=== PATIENT | female | born 1935 | race Caucasian/White ===

== ENCOUNTER 2023-09-29 10:24 | Inpatient (IN) ==
--- NOTE | 2023-09-29 10:43 | Emergency Department Note ---
Impression & Plan Weakness, Hypothyroid, Acute UTI, Debilitated ED Provider Note NAME: EMIGDIO SUMNER AGE: 88 SEX: F : 1935 ARRIVES VIA: Ambulance INFORMANT: [Patient][ems] ED PROVIDER(S): [Martin Paulino MD] CHIEF COMPLAINT: Fluttering in the chest, weakness HISTORY OF PRESENT ILLNESS: The patient is an 88-year-old female presents to the ER with complaints of weakness and feeling that she cannot stand. She has noticed a fluttering in her chest. No shortness of breath, no fever, no urinary complaints. She believes that she is staying well-hydrated. The patient was here 2 days ago with similar complaints, workup was done and was unrevealing. As per EMS, the patient appeared quite anxious when they first arrived. She seemed to settle out during the transfer to the hospital. Of note, there is a report from EMS that she may not be taking her thyroid medication as prescribed. PMHx/PSHx/Social Hx: See Below PHYSICAL EXAM: GENERAL: Patient is in no acute distress. HEENT: No acute trauma, normocephalic atraumatic, mucous membranes moist, no nasal congestion. NECK: No stridor, no adenopathy, no meningismus, trachea is midline. LUNGS: Clear to auscultation bilaterally, no wheeze, no rhonchi, breath sounds equal. HEART: Without murmurs gallops or rubs, regular rate and rhythm. ABDOMEN: Soft, nontender, no peritonitis. EXTREMITIES: No cyanosis, full range of motion of all the joints without pain or difficulty. NEUROLOGIC: Oriented x 3, no acute motor or sensory deficits, no focal weakness. No speech slur or extremity drift. SKIN: No jaundice, no diaphoresis. DIFFERENTIAL DIAGNOSIS: Debilitation, UTI, dysrhythmia, ID, anemia, viral illness, dehydration, anxiety, among others. EMERGENCY DEPARTMENT PROCEDURES: MEDICAL DECISION MAKING: There is no leukocytosis or concerning anemia. There is a normal platelet count. No coagulopathy. No renal failure or significant electrolyte abnormality. No concerning liver enzyme elevation. No evidence for pancreatitis. ECG shows a sinus rhythm. There is no acute ischemic change. Cardiac enzyme testing x 1 was not consistent with acute cardiac injury. TSH was high consistent with hypothyroidism. The patient admits that she has run out of her thyroid medication. She states it has been sometime since she has taken her thyroid medication. Urinalysis is suggestive of infection, urine culture is pending. COVID, influenza and RSV test were negative. Chest film does not show pneumonia or CHF. On exam, there were no focal neurologic deficits to suggest CVA. The patient received IV saline for hydration. She was given a dose of oral Keflex for her UTI. She was given her typical dose of oral levothyroxine for the hypothyroidism. The patient does meet criteria for rehab. She we will require a hospital stay overnight as there are no rehab beds available today. I suspect the patient is somewhat debilitated. This is causing a lot of her weakness. In addition, the UTI and hypothyroidism are certainly contributing. The patient is aware of her findings, I did speak with case management, the on- call hospitalist was consulted. Prior/Outside records/notes reviewed: Today's EMS notes describing her presentation and transfer to this hospital. ECG per my interpretation: Indication was palpitations and weakness. The ECG shows a poor baseline but I suspect the rhythm is normal sinus. The rate is 73. There is diffuse nonspecific ST change. There is no ST elevation, no PVCs. The QTc is 409. Continuous Cardiac Monitoring per my interpretation: An order was placed for continuous cardiac monitoring. The monitor shows a rate of 75 with normal sinus rhythm. Imaging/x-ray results per my interpretation: Chest x-ray shows some chronic change, no pneumonia or CHF. Chronic Medical/Social conditions affecting care: Advanced age. Care/Management discussed with: Case management. Level of care consideration(s): After review of the information above and other included data: --I believe the patient requires escalation of care to admission DISPOSITION: Admission Past Med/Surg History Problem List (Updated 09/29/23 @ 13:42 by Martin Paulino MD) Debilitated (Acute) Acute UTI (Acute) Hypothyroid (Acute) Weakness (Acute) Nausea (Acute) Medical History Hypothyroid Weakness Social History Smoking Status: Never smoker Preferred Language: Maori Feels Safe at Home: Yes Allergies Allergies Allergy/AdvReac Type Severity Reaction Status Date / Time No Known Allergies Allergy Unverified 09/29/23 13:17 Home Meds Home Medications Medication Instructions Recorded Confirmed levothyroxine 88 mcg tablet 88 mcg PO DAILY 09/29/23 09/29/23 multivitamin 1 tab PO DAILY 09/29/23 09/29/23 Results & Data (ED) Vital Signs Vital Signs - 24 hr 09/29/23 10:16 09/29/23 10:16 09/29/23 10:31 Temperature 36.7 C Temperature Source Oral Pulse Rate 72 Pulse Rate from SpO2 Sensor Respiratory Rate 30 H Respiratory Effort / Characteristics Non-Labored Respiratory Depth Normal Respiratory Pattern Regular Blood Pressure 170/82 H Blood Pressure Mean 111 Pulse Oximetry 99 99 Oxygen Delivery Method Room Air Room Air Room Air Sepsis Recent Fever Within 48 Hours No Sepsis New/Unexplained Change in Mental Status N/A Sepsis Action Taken by Nursing No Action Required 09/29/23 10:31 09/29/23 10:36 09/29/23 10:42 Temperature Temperature Source Pulse Rate 66 65 Pulse Rate from SpO2 Sensor 66 65 Respiratory Rate 28 H 24 Respiratory Effort / Characteristics Respiratory Depth Respiratory Pattern Blood Pressure 170/82 H Blood Pressure Mean 90 Pulse Oximetry 99 99 Oxygen Delivery Method Sepsis Recent Fever Within 48 Hours Sepsis New/Unexplained Change in Mental Status Sepsis Action Taken by Nursing 09/29/23 11:00 09/29/23 11:01 09/29/23 11:01 Temperature Temperature Source Pulse Rate 68 Pulse Rate from SpO2 Sensor 74 Respiratory Rate 28 H Respiratory Effort / Characteristics Respiratory Depth Respiratory Pattern Blood Pressure 178/83 H 178/83 H Blood Pressure Mean 113 113 Pulse Oximetry 95 Oxygen Delivery Method Sepsis Recent Fever Within 48 Hours Sepsis New/Unexplained Change in Mental Status Sepsis Action Taken by Nursing 09/29/23 11:01 09/29/23 11:01 09/29/23 11:04 Temperature Temperature Source Pulse Rate 65 Pulse Rate from SpO2 Sensor Respiratory Rate Respiratory Effort / Characteristics Respiratory Depth Respiratory Pattern Blood Pressure 178/83 H 178/83 H Blood Pressure Mean 113 113 Pulse Oximetry Oxygen Delivery Method Sepsis Recent Fever Within 48 Hours Sepsis New/Unexplained Change in Mental Status Sepsis Action Taken by Nursing 09/29/23 11:12 09/29/23 11:27 09/29/23 11:36 Temperature Temperature Source Pulse Rate 76 72 67 Pulse Rate from SpO2 Sensor 75 72 67 Respiratory Rate 24 18 18 Respiratory Effort / Characteristics Respiratory Depth Respiratory Pattern Blood Pressure Blood Pressure Mean Pulse Oximetry 99 99 95 Oxygen Delivery Method Sepsis Recent Fever Within 48 Hours Sepsis New/Unexplained Change in Mental Status Sepsis Action Taken by Nursing 09/29/23 11:48 09/29/23 12:00 09/29/23 12:09 Temperature Temperature Source Pulse Rate 63 65 Pulse Rate from SpO2 Sensor 63 65 Respiratory Rate 22 26 H Respiratory Effort / Characteristics Respiratory Depth Respiratory Pattern Blood Pressure 150/78 H Blood Pressure Mean 104 Pulse Oximetry 96 95 Oxygen Delivery Method Sepsis Recent Fever Within 48 Hours Sepsis New/Unexplained Change in Mental Status Sepsis Action Taken by Nursing 09/29/23 12:12 09/29/23 12:21 09/29/23 12:24 Temperature Temperature Source Pulse Rate 66 61 71 Pulse Rate from SpO2 Sensor 65 61 Respiratory Rate 17 17 20 Respiratory Effort / Characteristics Respiratory Depth Respiratory Pattern Blood Pressure Blood Pressure Mean Pulse Oximetry 98 94 Oxygen Delivery Method Sepsis Recent Fever Within 48 Hours Sepsis New/Unexplained Change in Mental Status Sepsis Action Taken by Nursing 09/29/23 12:30 09/29/23 12:30 09/29/23 13:00 Temperature Temperature Source Pulse Rate Pulse Rate from SpO2 Sensor Respiratory Rate Respiratory Effort / Characteristics Respiratory Depth Respiratory Pattern Blood Pressure 140/72 140/72 132/67 Blood Pressure Mean 97 97 78 Pulse Oximetry Oxygen Delivery Method Sepsis Recent Fever Within 48 Hours Sepsis New/Unexplained Change in Mental Status Sepsis Action Taken by Nursing 09/29/23 13:03 Temperature Temperature Source Pulse Rate 63 Pulse Rate from SpO2 Sensor 64 Respiratory Rate 17 Respiratory Effort / Characteristics Respiratory Depth Respiratory Pattern Blood Pressure Blood Pressure Mean Pulse Oximetry 96 Oxygen Delivery Method Sepsis Recent Fever Within 48 Hours Sepsis New/Unexplained Change in Mental Status Sepsis Action Taken by Prison Medications Current Medication List: was personally reviewed by me Laboratory Data Attestation: I reviewed the patient's lab results. 09/29/23 10:32 09/29/23 10:32 Lab Results 09/29/23 09/29/23 09/29/23 Range/Units 10:32 10:47 Unknown WBC 6.44 (4.8-10.8) K/ul RBC 5.00 (4.20-5.40) M/uL Hgb 15.9 (12.0-16.0) g/dl Hct 46.9 (37.0-47.0) % MCV 93.8 (80.0-100.0) fL MCH 31.8 (25.0-34.0) pg MCHC 33.9 (32.0-36.0) g/dL RDW Std Deviation 47.9 H (36.4-46.3) fL RDW Coeff of Abiodun 13.8 (11.5-14.5) % Plt Count 202 (130-400) K/uL MPV 9.7 (9.4-12.4) fL Immature Gran % (Auto) 0.3 % Neut % (Auto) 74.5 % Lymph % (Auto) 17.4 % [place] % (Auto) 6.4 % Eos % (Auto) 1.1 % Baso % (Auto) 0.3 % Neut # (Auto) 4.80 (1.40-6.50) K/uL Lymph # (Auto) 1.12 L (1.20-3.40) K/uL [place]ell # (Auto) 0.41 (0.11-0.59) K/uL Eos # (Auto) 0.07 (0.00-0.50) K/uL Baso # (Auto) 0.02 (0.00-0.20) K/uL Immature Gran # (Auto) 0.02 (0.01-0.20) K/uL PT 10.9 (9.0-12.0) Seconds INR 1.0 (0.9-1.1) APTT 29 (21-31) Seconds PTT Ratio 1.1 Sodium 134 L (136-145) mmol/L Potassium 4.4 (3.5-5.1) mmol/L Chloride 100 (98-107) mmol/L Carbon Dioxide 24 (21-32) mmol/L Anion Gap 10 (3-11) BUN 9 (6-23) mg/dl Creatinine 1.07 (0.6-1.2) mg/dl Est Cr Clr Drug Dosing 37.6 ml/min Est GFR ( Amer) 53.7 ml/min Est GFR (Non-Af Amer) 46.3 ml/min BUN/Creatinine Ratio 8.4 L (10-20) Glucose 91 (70-99(Fasting)) mg/dl Calcium 10.1 (8.6-10.3) mg/dl Magnesium 2.2 (1.7-2.4) mg/dl Total Bilirubin 1.2 H (0.2-1.0) mg/dl AST 19 (13-39) U/L ALT 8 (7-52) U/L Alkaline Phosphatase 92 (34-104) U/L Troponin I High Sens 3.4 (0-14) pg/ml Total Protein 7.1 (6.0-8.3) gm/dl Albumin 4.3 (3.4-5.0) gm/dl Globulin 2.8 (2.5-4.0) gm/dl Albumin/Globulin Ratio 1.5 (0.9-2) Lipase 17 (11-82) U/L TSH 174.733 H (0.300-4.500) uIu/ml Free T4 < 0.25 L (0.61-1.60) ng/dl Urine Color Yellow Urine Appearance Clear (Clear) Urine pH 6.0 (4.5-7.5) Ur Specific [place] 1.006 (1.000-1.030) Urine Protein Negative (Negative) Urine Glucose (UA) Negative (Negative) Urine Ketones 1+ H (Negative) Urine Blood Negative (Negative) Urine Nitrite Negative (Negative) Urine Bilirubin Negative (Negative) Urine Urobilinogen Negative (Negative) Ur Leukocyte Esterase 2+ H (Negative) Urine WBC (Auto) 11-20 H (0-5) /hpf Urine RBC (Auto) 0-2 (0-2) /hpf U Hyaline Cast (Auto) 0-2 (0-2) /lpf U Epithel Cells (Auto) 0-2 (0-2) /hpf Urine Bacteria (Auto) None Seen (None Seen) SARS-CoV-2 (PCR) NEGATIVE (Negative) Influenza Type A (PCR) Negative (Neg) Influenza Type B (PCR) Negative (Neg) RSV (RT-PCR) Negative (Neg) Administered Medications Discontinued Medications Cephalexin HCl (Cephalexin 250 Mg Cap) 500 mg PO NOW ONE Stop: 09/29/23 12:03 Last Admin: 09/29/23 12:46 Dose: 500 mg Documented By: AM Sodium Chloride (Nss) 500 mls @ 999 mls/hr IV .Q31M ONE Stop: 09/29/23 11:07 Last Infusion: 09/29/23 12:21 Dose: Infused Documented By: Admin: 09/29/23 10:45 Dose: 999 mls/hr Documented By: AM Levothyroxine Sodium (Levothyroxine Sodium 88 Mcg Tablet) 88 mcg PO NOW STA Stop: 09/29/23 12:14 Last Admin: 09/29/23 13:11 Dose: 88 mcg Documented By: AM Imaging Data Radiologist's Impression: Chest X-Ray 09/29/23 10:31 XR chest 1V portable CLINICAL HISTORY: Chest pain, nonspecific TECHNIQUE: Single frontal radiograph of the chest was obtained. Comparison: Comparison is made to chest radiograph 09/26/2013 FINDINGS: No lines and tubes are seen. The cardiomediastinal silhouette is normal. The lungs are clear. No evidence of pleural effusion or pneumothorax. IMPRESSION: No acute chest disease. ACT 112: Negative or not required by law. Electronically signed by: Kirill Joseph M.D. 09/29/2023 10:47 AM Discharge Plan Visit Data Chief Complaint: Cardiac Assessment ED Provider: Martin Paulino Discharge Problem: Weakness, Hypothyroid, Acute UTI, Debilitated Patient Disposition: Admitted As Inpatient Condition: Fair Forms Stand Alone Forms: [facility] [employer] Prescriptions Prescriptions: No Action levothyroxine 88 mcg tablet 88 mcg PO DAILY multivitamin [Multi-Vitamin] Tablet 1 tab PO DAILY Referrals Referrals: PCP,NO [Primary Care Provider] - Discharge Problem: Hypothyroid Qualifiers: Hypothyroidism type: unspecified Qualified Code(s): E03.9 - Hypothyroidism, unspecified
[2023-09-29] MEDS: SODIUM CHLORIDE 0.9% 500 ML IV ONE (10:45)
--- NOTE | 2023-09-29 10:49 | XRay Report ---
XR chest 1V portable CLINICAL HISTORY: Chest pain, nonspecific TECHNIQUE: Single frontal radiograph of the chest was obtained. Comparison: Comparison is made to chest radiograph 09/26/2013 FINDINGS: No lines and tubes are seen. The cardiomediastinal silhouette is normal. The lungs are clear. No evid ence of pleural effusion or pneumothorax. IMPRESSION: No acute chest disease. ACT 112: Negative or not required by law. Electronically signed by: Kirill Joseph M.D. 09/29/2023 10:47 AM
[2023-09-29 11:09] LABS: Partial Thromboplastin Ratio 1.1; Partial Thromboplastin Time 29 Seconds (21-31); Prothrombin Time 10.9 Seconds (9.0-12.0)
[2023-09-29 11:19] LABS: Basophils # (auto) 0.02 K/uL (0.00-0.20); Basophils % (auto) 0.3 %; Eosinophils # (auto) 0.07 K/uL (0.00-0.50); Eosinophils % (auto) 1.1 %; Hematocrit (blood only) 46.9 % (37.0-47.0); Hemoglobin 15.9 g/dl (12.0-16.0); Immature Granulocytes # (auto) 0.02 K/uL (0.01-0.20); Immature Granulocytes % (auto) 0.3 %; Lymphocytes # (auto) 1.12 K/uL (1.20-3.40); Lymphocytes % (auto) 17.4 %; Mean Corpuscular Hemoglobin 31.8 pg (25.0-34.0); Mean Corpuscular Hgb Conc 33.9 g/dL (32.0-36.0); Mean Corpuscular Volume 93.8 fL (80.0-100.0); Mean Platelet Volume 9.7 fL (9.4-12.4); Monocytes # (auto) 0.41 K/uL (0.11-0.59); Monocytes % (auto) 6.4 %; Neutrophils % (auto) 74.5 %; Platelet Count 202 K/uL (130-400); RDW Coefficient of Variation 13.8 % (11.5-14.5); RDW Standard Deviation 47.9 fL (36.4-46.3); White Blood Count 6.44 K/ul (4.8-10.8)
[2023-09-29 11:24] LABS: Alanine Aminotransferase 8 U/L (7-52); Albumin Globulin Ratio 1.5 (0.9-2); Albumin Level 4.3 gm/dl (3.4-5.0); Alkaline Phosphatase 92 U/L (34-104); Anion Gap 10 (3-11); Aspartate Aminotransferase 19 U/L (13-39); BUN Creatinine Ratio 8.4 (10-20); Bilirubin,Total 1.2 mg/dl (0.2-1.0); Blood Urea Nitrogen 9 mg/dl (6-23); Calcium 10.1 mg/dl (8.6-10.3); Carbon Dioxide 24 mmol/L (21-32); Chloride 100 mmol/L (98-107); Creatinine Clr Calc Pharmacy 37.6 ml/min; Est GFR (African American) 53.7 ml/min; Est GFR (Non-African American) 46.3 ml/min; Globulin 2.8 gm/dl (2.5-4.0); Glucose 91 mg/dl (70-99(Fasting)); Lipase 17 U/L (11-82); Magnesium 2.2 mg/dl (1.7-2.4); Potassium 4.4 mmol/L (3.5-5.1); Sodium 134 mmol/L (136-145); Total Protein 7.1 gm/dl (6.0-8.3)
[2023-09-29 11:30] LABS: Troponin I High Sensitivity 3.4 pg/ml (0-14)
[2023-09-29 11:48] LABS: Influenza A virus by PCR Negative (Neg); Influenza B virus by PCR Negative (Neg); RSV by PCR Negative (Neg); SARS CoV2 RNA(COVID-19) Ceph NEGATIVE (Negative)
[2023-09-29 11:54] LABS: Appearance Urine Clear (Clear); Bacteria Urine Automated None Seen (None Seen); Bilirubin Urine Negative (Negative); Blood Urine Negative (Negative); Cast Urine Automated 0-2 /lpf (0-2); Color Urine Yellow; Epithelial Cell Urine Auto 0-2 /hpf (0-2); Glucose Urine UA Negative (Negative); Ketones Urine 1+ (Negative); Leukocyte Esterase Urine 2+ (Negative); Nitrite Urine Negative (Negative); Protein Urine Negative (Negative); RBC Urine Automated 0-2 /hpf (0-2); Specific Gravity Urine 1.006 (1.000-1.030); Urobilinogen Urine Negative (Negative)
[2023-09-29 12:11] LABS: Thyroid Stimulating Hormone 174.733 uIu/ml (0.300-4.500)
[2023-09-29] MEDS: cephALEXin 250 MG CAP PO ONE (12:46)
[2023-09-29] MEDS: LEVOTHYROXINE SODIUM 88 MCG TABLET PO STA (13:11)
[2023-09-29 13:14] LABS: T4 Free Thyroxine < 0.25 ng/dl (0.61-1.60)
--- NOTE | 2023-09-29 13:27 | History & Physical Report ---
<Statement entered by Erwin Tucker, DO - 09/29/23 15:45> I have seen and examined the patient and have discussed the case with the provider above. I have reviewed the advanced practitioner's documentation, and I agree with, and take responsibility for that plan of care. 10 minutes spent in care and coordination of the patient with KAMILA Patient seen and examined while still in ED. Generalized weakness most likely due to the fact that is not taking her Synthroid. Patient understands will probably need short-term rehab while she regains her strength and her thyroid levels returned closer to normal. Plan of care as outlined below Date of Service September 29, 2023 Assessment & Plan (1) Weakness: (2) Ambulatory dysfunction: Plan: Patient is 88-year-old female with PMH postsurgical hypothyroidism presented to ER with c/o progressive generalized weakness for at least past week. Denies falls In ER vitals stable. TSH: 174. Na: 134, no other significant electrolyte abnormalities, no leukocytosis. In ER acute rehab placement at [facility] was attempted however reported no bed availability at this time Suspect weakness secondary to hypothyroidism Fall precautions PT/OT eval CBC, BMP in am (3) Palpitations: Plan: Reported intermittent palpitations. Denies any currently. Denies CP, SOB. Troponin negative. Appears sinus rhythm Monitor on telemetry EKG prn and in AM (4) Post-surgical hypothyroidism: Plan: Reported history partial thyroidectomy TSH: 174, Free T4: <0.25 Patient has been out of levothyroxine Restart home levothyroxine 88mcg daily Will need continued follow up of TSH for further dosing adjustments (5) Abnormal urinalysis: Plan: UA: 2+ leuk esterase, 11-20 WBC, Negative bacteria Denies dysuria, hematuria, urinary frequency, abdominal or flank pain In ER given Rocephin Lower suspicion for UTI. Await urine culture DVT Prophylaxis Lovenox SQ Admit med/tele Full code as per discussion with patient. Previously followed with Walter Kamara PA-C, but hasn't been seen for 2 years. Pt was seen and care coordinated with Dr Tucker See addendum I spent a total of 75 minutes reviewing notes, outpatient records, labs, medication, coordinating, documenting and providing care for this patient exc luding time spent in the performance of separately billed services. History of Present Illness Chief Complaint: weakness Primary Care Provider: NO PCP Patient is 88-year-old female with PMH postsurgical hypothyroidism presented to ER with c/o generalized weakness. History obtained from patient and outpatient chart review. States progressive weakness over past week, but admits may have been having some generalized weakness starting prior. States prior was walking daily and able to complete all her ADLs independently. Lives independently in apartment. This week noticed increased weakness with walking. Denies any falls. Denies myalgias or arthralgias. Seen in [facility] ER 09/27/23 for weakness and discharged home. States having intermittent "fluttering" sensation in chest. Has occurred with sitting and is unsure how long it lasts. Denies any associated symptoms at the time. Denies CP, SOB, dizziness, syncope. Patient states has been out of her levothyroxine but is unsure how long. Per outpatient chart review patient has not seen PCPs office since 2021. Last Rx for levothyroxine filled was 03/2023 for 90 day supply. Denies fever/chills, diaphoresis, N/V/D/C, CALVERT, dizziness, syncope, vision changes, neck pain, CP, SOB, orthopnea, cough, sore throat, choking, otalgia, rhinorrhea, abdominal pain, paresthesias, extremity edema, rashes, urinary symptoms. Sandra Terrell is emergency contact. Patient doesn't have his number currently. He lives in [place]. Allergies Allergy/AdvReac Type Severity Reaction Status Date / Time No Known Allergies Allergy Unverified 09/29/23 13:17 Home Medications Medication Instructions Recorded Confirmed Type levothyroxine 88 mcg tablet 88 mcg PO DAILY 09/29/23 09/29/23 History multivitamin 1 tab PO DAILY 09/29/23 09/29/23 History Past Med/Surg History Problem List (Updated 09/29/23 @ 15:14 by Tamara Gonsalves PA-C) Abnormal urinalysis Palpitations Ambulatory dysfunction Post-surgical hypothyroidism Debilitated (Acute) Acute UTI (Acute) Hypothyroid (Acute) Weakness (Acute) Nausea (Acute) Medical History Hypothyroid Weakness Surgical History History of appendectomy History of partial thyroidectomy Family History (Updated 09/29/23 @ 15:10 by Tamara Gonsalves PA-C) Brother Heart disease Social History (Updated 09/29/23 @ 15:10 by Tamara Gonsalves PA-C) Smoking Status: Never smoker Hx Alcohol Use: No Hx Substance Use: No Preferred Language: Danish Feels Safe at Home: Yes Review of Systems Review of Systems: All systems reviewed & are unremarkable except as noted in HPI & below Physical Exam Physical Exam: General: no distress, WDWN Head: normocephalic, atraumatic Eyes: PERRL, EOM's intact, conjunctiva non-injected, anicteric ENT: normal inspection external ears, nose, mucous membranes moist Neck: supple, trachea midline Lungs: clear, no respiratory distress, no wheezing/rhonchi/rales CV: RRR, no murmur, no pretibial edema Abd: normal BS, soft, non-tender Ext: no cyanosis, no calf tenderness, strength equal and 5/5 bilateral upper and lower extremities Neuro: Alert, oriented to person, place, month and year. did not know day or president, no focal deficits noted, normal affect Skin: warm, diffuse dry skin Results & Data Results & Data Vital Signs (Past 12 Hours) Vital Signs Temp Pulse Resp BP Pulse Ox O2 Del Method 09/29/23 13:03 63 17 96 09/29/23 13:00 132/67 09/29/23 12:30 140/72 09/29/23 12:30 140/72 09/29/23 12:24 71 20 09/29/23 12:21 61 17 94 09/29/23 12:12 66 17 98 09/29/23 12:09 65 26 H 95 09/29/23 12:00 150/78 H 09/29/23 11:48 63 22 96 09/29/23 11:36 67 18 95 09/29/23 11:27 72 18 99 09/29/23 11:12 76 24 99 09/29/23 11:04 65 09/29/23 11:01 178/83 H 09/29/23 11:01 178/83 H 09/29/23 11:01 178/83 H 09/29/23 11:01 178/83 H 09/29/23 11:00 68 28 H 95 09/29/23 10:42 65 24 99 09/29/23 10:36 66 28 H 99 09/29/23 10:31 170/82 H 09/29/23 10:31 99 Room Air 09/29/23 10:16 Room Air 09/29/23 10:16 36.7 C 72 30 H 170/82 H 99 Room Air Laboratory Results Short CBC 09/29/23 Range/Units 10:32 WBC 6.44 (4.8-10.8) K/ul Hgb 15.9 (12.0-16.0) g/dl Hct 46.9 (37.0-47.0) % Plt Count 202 (130-400) K/uL BMP 09/29/23 10:32 Sodium 134 L Potassium 4.4 Chloride 100 Carbon Dioxide 24 BUN 9 Creatinine 1.07 Glucose 91 Calcium 10.1 Liver Function 09/29/23 Range/Units 10:32 Total Bilirubin 1.2 H (0.2-1.0) mg/dl AST 19 (13-39) U/L ALT 8 (7-52) U/L Alkaline Phosphatase 92 (34-104) U/L Albumin 4.3 (3.4-5.0) gm/dl Urine 09/29/23 Range/Units Unknown Urine Color Yellow Urine Appearance Clear (Clear) Urine pH 6.0 (4.5-7.5) Ur Specific [place] 1.006 (1.000-1.030) Urine Protein Negative (Negative) Urine Glucose (UA) Negative (Negative) Diagnostic Findings Chest X-Ray 09/29/23 10:31 XR chest 1V portable CLINICAL HISTORY: Chest pain, nonspecific TECHNIQUE: Single frontal radiograph of the chest was obtained. Comparison: Comparison is made to chest radiograph 09/26/2013 FINDINGS: No lines and tubes are seen. The cardiomediastinal silhouette is normal. The lungs are clear. No evidence of pleural effusion or pneumothorax. IMPRESSION: No acute chest disease. ACT 112: Negative or not required by law. Electronically signed by: Kirill Joseph M.D. 09/29/2023 10:47 AM
[2023-09-29] MEDS ORDERED: ACETAMINOPHEN 325 MG TAB PO PRN (14:52)
[2023-09-29] MEDS ORDERED: ONDANSETRON INJ 2 MG/ML 2 ML VIAL IV PRN (14:52)
[2023-09-29] MEDS ORDERED: POLYETHYLENE (MIRALAX) 17 GM PACK PO PRN (14:52)
--- NOTE | 2023-09-29 15:30 | Electrocardiogram Report ---
Test Reason : Blood Pressure : */* mmHG Vent. Rate : 73 BPM Atrial Rate : * BPM P-R Int : * ms QRS Dur : 70 ms QT Int : 372 ms P-R-T Axes : * -30 -55 degrees QTcB Int : 409 ms Poor data quality, interpretation may be adversely affected Normal sinus rhythm Left axis deviation Low voltage QRS Nonspecific T wave abnormality Abnormal ECG When compared with ECG of 27-Sep-2023 14:35, Nonspecific T wave abnormality, worse in Inferior leads Confirmed by Librado Lawrence ([id number]) on 09/29/2023 3:29:40 PM Referred By: Confirmed By: Librado Lawrence
[2023-09-29] MEDS: ENOXAPARIN INJ 40 MG/0.4 ML SYR SQ SCH (15:58)
--- OUTSIDE RECORDS SUMMARY | 2023-09-29 16:16 | External Medical Summary | Summary of Care ---
Author Name Unknown Organization [facility] Address [address] [place] [address] Phone [phone] Care Team Providers Care Realty Loan Specialist Name Role Phone Unavailable Primary Care Provider Unavailabl e Reason for Visit * Reason Comments eRx-Medication Refill Encounter Details Date Type Department Care Team (Late st Contact Info) Description 08/11/2023 Refill General Internal Medicine [facility] [place] [address] [facility] [place] [address] Walter Kamara PA-C [address] [facility] [place] [address] Postsurgical hypothyroidism Allergies No known active allergiesdocumented as of this encounter (statuses as of 08/11/2023) Medications Medication Sig Dispensed Refills Start Date End Date Status MULTIVITAMINS OR TABS daily 0 03/19/2003 Act catracho Levothyroxine Sodium 88 MCG Oral Tablet (Levoxyl)Indications:Po stsurgical hypothyroidism TAKE 1 TABLET BY MOUTH EVERY MORNING on empty stomach 90 Tablet 04/03/2023 Active documented as of this encounter (statuses as of 08/11/2023) Active Problems Problem Noted Date Diagnosed Date ADVANCE DIRECTIVE INFORMATION 06/10/2004 Overview: Brochure given to pt. Postsurgical hypothyroidism documented as of this encounter (statuses as of 08/11/2023) Social History Tobacco Use Types Packs/Day Years Used Date Smoking Tobacco: Never Smokeless Tobacco: Never Alcohol Use Standard Drinks/Week Comments Yes 0 (1 standard drink = 0.6 oz pur e alcohol) rare PHQ-2 Answer Date Recorded PHQ-2 Score -1 02/26/2018 Sex and Gender Information Value Date Recorded Sex Assigned at Not on file Gender Identity Not on file Sexual Orientation Not on file Job Start Date Occupation Industry Not on file Not on file Not on file documented as of this encounter Miscellaneous Notes * Telephone Encounter - Orlando Clemente RP - 08/11/2023 1:36 PM EDTRefused Prescriptions: Disp Refills Levothyroxine Sodium 88 MCG Oral Tablet (L*90 Tab*0 Sig: TAKE 1TABLET BY MOUTH EVERY MORNING on empty stomachRefused By: ORLANDO CLEMENTE for Refusal: Duplicate Request documented in this encounter Plan of Treatment Health Maintenance Due Date Last Done Comments DXA Scan 1935 DTaP,Tdap,and Td Vaccines (1 - Tdap) 08/06/1954 Zoster Vaccines (1 of 2) 08/06/1985 Pneumococcal Vaccine: 65+ Years (1 of 1 - PCV) 08/06/2000 Depression Screening 02/26/2019 02/26/2018 COVID-19 Vaccine ( - 2022- season) 2022 TSH 11/15/2022 11/15/2021, 08/0 09/2021, 11/30/2020, Additional history exists Influenza Vaccine (FLU shot) (Season Ended) 2023 GARDASIL-HPV IMMUNIZATION SERIES Aged Out No longer eligible based on patient's age to complete this topic Hepatitis B Aged Out No longer eligi ble based on patient's age to complete this topic MENINGOCOCCAL (MENACTRA/MENVEO) Aged Out No longer eligible based on patient's age to complete this topic documented as of this encounter Medical Devices Not on filedocumented as of this encounter Visit Diagnoses Diagnosis Postsurgical hypothyroidism documented in this encounter
--- OUTSIDE RECORDS SUMMARY | 2023-09-29 16:16 | External Medical Summary | Summary of Care ---
Author Name Unknown Organization [facility] Address [address] [place] [address] Phone [phone] Care Team Providers Care Medicine Worker Name Role Phone Unavailable Primary Care Provider Unavailabl e Reason for Visit * Reason Comments eRx-Medication Refill Encounter Details Date Type Department Care Team (Late st Contact Info) Description 04/02/2023 Refill General Internal Medicine [facility] [place] [address] [facility] [place] [address] Walter Chan PA-C [address] [facility] [place] [address] Encounter for long-term (current) use of other medications*; Postsurgical hypothyroidism Allergies No known active allergiesdocumented as of this encounter (statuses as of 04/12/2023) Medications Medication Sig Dispensed Refills Start Date End Date Status MULTIVITAMINS OR TABS daily 0 03/19/2003 Active Levothyroxine Sodium 88 MCG Oral Tablet (Levoxyl)Indications :Postsurgical hypothyroidism TAKE 1 TABLET BY MOUTH EVERY MORNING on empty stomach 90 Tablet 0 04/03/2023 Active Levothyroxine Sodium 88 MCG Oral Tablet (Levoxyl)Indications :Postsurgical hypothyroidism TAKE 1 TABLET BY MOUTH EVERY MORNING on an empty stomach 90 Tablet 1 09/08/2022 Discontinued documented as of this encounter (statuses as of 04/12/2023) Active Problems Problem Noted Date Diagnosed Date ADVANCE DIRECTIVE INFORMATION 06/10/2004 Overview: Brochure given to pt. Postsurgical hypothyroidism documented as of this encounter (statuses as of 04/12/2023) Social History Tobacco Use Types Packs/Day Years [...] encounter Miscellaneous Notes * Telephone Encounter - Manuel Mixon - 04/12/2023 12:21 PM EST Received message from [facility] regarding patient needing appointment and labs. Patient was notified. Unable to reach patient, as there was no answer and no VM available to leave message. Letter was created to be sent out to the patient. * Telephone Encounter - Orlando Clemente [facility] - 04/03/2023 11:09 AM ESTSigned Prescriptions: Disp Refills Levothyroxine Sodium 88 MCG Oral Tablet (L*90 Tab*0 Sig: TAKE 1 TABLET BY MOUTH EVERY MORNING on empty stomach Authorizing Provider: WALTER CHAN Ordering User: ORLANDO CLEMENTE * Telephone Encounter - Orlando Clemente [facility] - 04/03/2023 11:07 AM EST Provided 90 days supply with 0 refill. Per refill protocol patient should have tsh, bmp on file within past year. Reviewed AMP report, Care Gaps/Health Maintenance, medications list, and for any routine labs typically ordered for this patient. Lab orders placed. Please contact patient to schedule office visit with PRIMARY CARE and advise of labs ordered for blood draw.. Fasting is not required. Advise to obtain labs before requesting the next refill. Last Visit: 12/01/2021 (in office), Visit date not found (telemedicine) Next Visit: Visit date not found Thank you, Orlando Clemente, PharmD Clinical Pharmacist [facility] [phone] 04/03/2023, 11:07 AM documented in this encounter Plan of Treatment Scheduled Orders Name Type Priority Associated Diagnoses Orde r Schedule BASIC METABOLIC PANEL Lab Routine Encounter for long-term (current) use of other medications Expected: 04/10/2023 (Approximate), Expires: 04/03/2024 TSH WITH FREE T4 IF INDICATED Lab Routine Postsurgical hypothyroidism Expected: 04/10/2023 (Approximate), Expires: 04/03/2024 Health Maintenance Due Date Last Done Comments DXA Scan 1935 DTaP,Tdap,and Td Vaccines (1 - Tdap) 08/06/1954 Zoster Vaccines (1 of 2) 08/06/1985 Pneumococcal Vaccine: 65+ Years (1 of 1 - PCV) 08/06/2000 Depression Screening 02/26/2019 02/26/2018 COVID-19 Vaccine ( - 2022- season) 2022 Influenza Vaccine (FLU shot) (#1) 2022 TSH 11/15/2022 11/15/2021, 08/0 09/2021, 11/30/2020, Additional history exists GARDASIL-HPV IMMUNIZATION SERIES Aged Out No longer [...] as of this encounter Visit Diagnoses Diagnosis Encounter for long-term (current) use of other medications- Primary Postsurgical hypothyroidism documented in this encounter
--- OUTSIDE RECORDS SUMMARY | 2023-09-29 16:16 | External Medical Summary | Summary of Care ---
Author Name Unknown Organization [facility] Address [address] [place] [address] Phone [phone] Care Team Providers Care Souvenir Assembler Name Role Phone Unavailable Primary Care Provider Unavailabl e Reason for Visit * Reason Comments eRx-Medication Refill Encounter Details Date Type Department Care Team (Late st Contact Info) Description 08/12/2023 Refill General Internal Medicine [facility] [place] [address] [facility] [place] [address] Walter Kamara PA-C [address] [facility] [place] [address] Postsurgical hypothyroidism Allergies No known active allergiesdocumented as of this encounter (statuses as of 08/14/2023) Medications Medication Sig Dispensed Refills Start Date End Date Status MULTIVITAMINS OR TABS daily 0 03/19/2003 Act catracho Levothyroxine Sodium 88 MCG Oral Tablet (Levoxyl)Indications:Po stsurgical hypothyroidism TAKE 1 TABLET BY MOUTH EVERY MORNING on empty stomach 90 Tablet 04/03/2023 Active documented as of this encounter (statuses as of 08/14/2023) Active Problems Problem Noted Date Diagnosed Date ADVANCE DIRECTIVE INFORMATION 06/10/2004 Overview: Brochure given to pt. Postsurgical hypothyroidism documented as of this encounter (statuses as of 08/14/2023) Social History Tobacco Use Types Packs/Day Years [...] encounter Miscellaneous Notes * Telephone Encounter - Sandy Hope PHARM Tech - 08/14/2023 3:32 PM EDT Pharmacy calling to see if we have a alternative phone number for her. They haven't been able to reach her at her known number. Sandy Wilcox Patient Portal Representative II [facility] [address] [address] 08/14/2023 3:32 PM * Telephone Encounter - Brigida Finch [facility] - 08/14/2023 7:28 AM EDTRefused Prescriptions: Disp Refills Levothyroxine Sodium 88 MCG Oral Tablet (L*90 Tab*0 Sig: TAKE 1 TABLET BY MOUTH EVERY MORNING on empty stomach Refused By: BRIGIDA FINCH Reason for Refusal: Appt. Required, please call patient * Telephone Encounter - Brigida Finch [facility] - 08/14/2023 7:26 AM EDT Patient last seen and labs last completed in 2021 Refusing refill 3rd attempt Please contact patient to schedule office visit with PRIMARY CARE and advise of labs ordered for blood draw.. Fasting is not required. Advise to obtain labs before refills will be approved. Last Visit: 12/01/2021 (in office), Visit date not found (telemedicine) Next Visit: Visit date not found Thank You, Brigida Finch [facility] Clinical Pharmacist [facility] [phone] [id number] 08/14/2023, 7:27 AM documented in this encounter Plan of Treatment Health Maintenance Due Date Last Done Comments DXA Scan 1935 DTaP,Tdap,and Td Vaccines (1 - Tdap) 08/06/1954 Zoster Vaccines (1 of 2) 08/06/1985 Pneumococcal Vaccine: 65+ Years (1 of 1 - PCV) 08/06/2000 Depression Screening 02/26/2019 02/26/2018 COVID-19 Vaccine (1 - 2022- season) 2022 TSH 11/15/2022 11/15/2021, 08/0 09/2021, 11/30/2020, Additional history exists Influenza Vaccine (FLU shot) (#1) 2023 GARDASIL-HPV IMMUNIZATION SERIES Aged Out No [...]
--- OUTSIDE RECORDS SUMMARY | 2023-09-29 16:16 | External Medical Summary | Summary of Care ---
Author Name Unknown Organization [facility] Address [address] [place] [address] Phone [phone] Care Team Providers Care Mincing Machine Operator Name Role Phone Unavailable Primary Care Provider Unavailabl e Reason for Visit * Reason Comments eRx-Medication Refill Encounter Details Date Type Department Care Team (Late st Contact Info) Description 08/12/2023 Refill General Internal Medicine [facility] [place] [address] [facility] [place] [address] Walter Kamara PA-C [address] [facility] [place] [address] Postsurgical hypothyroidism Allergies No known active allergiesdocumented as of this encounter (statuses as of 09/08/2023) Medications Medication Sig Dispensed Refills Start Date End Date Status MULTIVITAMINS OR TABS daily 0 03/19/2003 Act catracho Levothyroxine Sodium 88 MCG Oral Tablet (Levoxyl)Indications:Po stsurgical hypothyroidism TAKE 1 TABLET BY MOUTH EVERY MORNING on empty stomach 90 Tablet 04/03/2023 Active documented as of this encounter (statuses as of 09/08/2023) Active Problems Problem Noted Date Diagnosed Date ADVANCE DIRECTIVE INFORMATION 06/10/2004 Overview: Brochure given to pt. Postsurgical hypothyroidism documented as of this encounter (statuses as of 09/08/2023) Social History Tobacco Use Types Packs/Day Years [...] encounter Miscellaneous Notes * Telephone Encounter - Brigida Finch RP - 09/08/2023 11:08 AM EDT Tried contacting patient to schedule appointment Number not in service Thank You, Brigida Finch [facility] Clinical Pharmacist [facility] [phone] [id number] 09/08/2023, 11:09 AM * Telephone Encounter - Sandy Hope PHARM Tech - 08/14/2023 3:32 PM EDT Pharmacy calling to see if we have a alternative phone number for her. They haven't been able to reach her at her known number. Sandy Wilcox Doctor Of Optometry II [facility] [address] [address] 08/14/2023 3:32 PM * Telephone Encounter - Brigida Finch [facility] - 08/14/2023 7:28 AM EDTRefused Prescriptions: Disp Refills Levothyroxine Sodium 88 MCG Oral Tablet (L*90 Tab*0 Sig: TAKE 1 TABLET BY MOUTH EVERY MORNING on empty stomach Refused By: BRIGIDA FINCH Reason for Refusal: Appt. Required, please call patient * Telephone Encounter - Brigida Finch RP - 08/14/2023 7:26 AM EDT Patient last [...] date not found Thank You, Brigida Finch [facility] Clinical Pharmacist [facility] [phone] [id number] 08/14/2023, 7:27 AM documented in this encounter [...] exists Influenza Vaccine (FLU shot) (#1) 2023 HPV (Gardasil) Vaccine Aged Out No lo nger eligible based on patient's age to complete this topic Hepatitis B Vaccine Aged Out No longe r eligible based on patient's age to complete this topic MENINGOCOCCAL (MENACTRA/MENVEO) Aged Out No longer eligible based on patient's age to complete this topic documented as of this encounter Medical Devices Not on filedocumented as of this encounter Visit Diagnoses Diagnosis Postsurgical hypothyroidism documented in this encounter
[2023-09-30] MEDS: LEVOTHYROXINE SODIUM 88 MCG TABLET PO SCH (05:48)
[2023-09-30 06:43] LABS: Hematocrit (blood only) 43.4 % (37.0-47.0); Hemoglobin 14.7 g/dl (12.0-16.0); Mean Corpuscular Hemoglobin 31.9 pg (25.0-34.0); Mean Corpuscular Hgb Conc 33.9 g/dL (32.0-36.0); Mean Corpuscular Volume 94.1 fL (80.0-100.0); Mean Platelet Volume 9.5 fL (9.4-12.4); Platelet Count 172 K/uL (130-400); RDW Coefficient of Variation 14.1 % (11.5-14.5); RDW Standard Deviation 48.7 fL (36.4-46.3); Red Blood Count 4.61 M/uL (4.20-5.40); White Blood Count 5.71 K/ul (4.8-10.8)
[2023-09-30 07:06] LABS: BUN Creatinine Ratio 9.5 (10-20); Calcium 9.2 mg/dl (8.6-10.3); Est GFR (Non-African American) 53.5 ml/min; Potassium 3.9 mmol/L (3.5-5.1)
[2023-09-30] MEDS: MULTIVITAMIN TAB PO SCH (08:13)
--- NOTE | 2023-09-30 09:30 | Hospitalist Progress Note ---
Date of Service September 30, 2023 Assessment & Plan (1) Weakness: (2) Ambulatory dysfunction: (3) Palpitations: (4) Post-surgical hypothyroidism: (5) Abnormal urinalysis: Plan 88-year-old female with PMH postsurgical hypothyroidism presented to ER with c/o progressive generalized weakness for at least past week. In ER vitals stable. TSH: 174. Na: 134, no other significant electrolyte abnormalities, no leukocytosis. In ER acute rehab placement at [facility] was attempted however reported no bed availability at this time. Suspect weakness secondary to hypothyroidism Post surgical hypothyroidism with medical non-compliance with weakness/ambulatory dysfunction - History of partial thyroidectomy - TSH 174, fT4 <0.25. Unknown last dose of synthroid as she ran out - Resumed on home dose on synthroid 88 mcg - Will check TSH, fT4 in the next few days to see response. - PT OT eval pending Abnormal UA, possible UTI- UA suspicious. Given keflex in ED. Urine clx with pin point growth. Will start on bactrim pending final urine clx results. DVT ppx- sc lovenox Dispo- Awaiting urine clx, PT OT eval. Will need rehab at discharge. Time spent- approx 25 mins Admission and Anticipated Discharge Date Admission Date: September 29, 2023 Subjective Patient seen and examined at bedside. States she feels okay. She has not got out of bed to see how her weakness is. She is asking when she can go to the rehab. She is not sure when she ran out of her levothyroxine. No fever, chills, chest pain, SOB, N/V. Review of Systems Review of Systems: All systems reviewed & are unremarkable except as noted in Subjective Physical Exam Physical Exam: General: Lying comfortably in bed, not in distress, on room air HEENT: EOMI, VINCENT, MMM Chest: Clear breath sounds bilaterally, no wheezes or crackles CVS: Regular rate and rhythm, normal heart sounds, no murmur Abdomen: Soft, non tender, not distended, normal bowel sounds Neuro: Awake, alert, oriented, conversing well, non focal Extremities: No edema Results & Data Results & Data Vital Signs (Past 12 Hours) Vital Signs Temp Pulse Pulse Resp BP BP Pulse Ox 09/30/23 07:41 36.7 C 58 L 18 115/64 96 09/30/23 07:27 09/30/23 07:27 64 09/30/23 01:27 36.7 C 60 16 123/70 94 09/29/23 22:35 36.8 C 69 16 116/71 95 09/29/23 21:56 64 O2 Del Method 09/30/23 07:41 Room Air 09/30/23 07:27 Room Air 09/30/23 07:27 09/30/23 01:27 Room Air 09/29/23 22:35 Room Air 09/29/23 21:56 Laboratory Results Short CBC 09/30/23 Range/Units 06:22 WBC 5.71 (4.8-10.8) K/ul Hgb 14.7 (12.0-16.0) g/dl Hct 43.4 (37.0-47.0) % Plt Count 172 (130-400) K/uL BMP 09/30/23 06:22 Sodium 135 L Potassium 3.9 Chloride 105 Carbon Dioxide 22 BUN 9 Creatinine 0.95 Glucose 85 Calcium 9.2
[2023-09-30] MEDS: SULFAMETHOXAZOLE/TRIMETHOPRIM DS 800/160MG TAB PO SCH (13:35)
--- NOTE | 2023-10-01 08:25 | Hospitalist Progress Note ---
Date of Service October 01, 2023 Assessment & Plan (1) Weakness: (2) Ambulatory dysfunction: (3) Palpitations: (4) Post-surgical hypothyroidism: (5) Abnormal urinalysis: Plan 88-year-old female with PMH postsurgical hypothyroidism presented to ER with c/o progressive generalized weakness for at least past week. In ER vitals stable. TSH: 174. Na: 134, no other significant electrolyte abnormalities, no leukocytosis. In ER acute rehab placement at [facility] was attempted however reported no bed availability at this time. Suspect weakness secondary to hypothyroidism Post surgical hypothyroidism with medical non-compliance with weakness/ambulatory dysfunction - History of partial thyroidectomy - TSH 174, fT4 <0.25. Unknown last dose of synthroid as she ran out - Resumed on home dose on synthroid 88 mcg - Will check TSH, fT4 in the next few days to see response. - PT OT eval pending Abnormal UA, possible UTI- UA suspicious. Given keflex in ED. Urine clx with pin point growth. Will start on bactrim pending final urine clx results. DVT ppx- sc lovenox Dispo- Awaiting urine clx, PT OT eval. Will need rehab at discharge. Time spent- approx 25 mins Admission and Anticipated Discharge Date Admission Date: September 29, 2023 Subjective Patient was seen and examined at bedside. Review of Systems Review of Systems: All systems reviewed & are unremarkable except as noted in Subjective Physical Exam Physical Exam: General: Lying comfortably in bed, not in distress, on room air HEENT: EOMI, VINCENT, MMM Chest: Clear breath sounds bilaterally, no wheezes or crackles CVS: Regular rate and rhythm, normal heart sounds, no murmur Abdomen: Soft, non tender, not distended, normal bowel sounds Neuro: Awake, alert, oriented, conversing well, non focal Extremities: No edema Results & Data Results & Data Vital Signs (Past 12 Hours) Vital Signs Temp Pulse Pulse Resp BP Pulse Ox O2 Del Method 10/01/23 07:35 36.4 C L 59 L 20 139/66 95 Room Air 10/01/23 07:16 66 10/01/23 03:50 36.3 C L 66 18 149/79 H 96 Room Air 09/30/23 22:57 36.6 C 64 18 143/83 H 95 Room Air
--- NOTE | 2023-10-01 10:35 | Discharge Summary ---
Date of Service October 01, 2023 Admission HPI Per Admitting Provider Patient is 88-year-old female with PMH postsurgical hypothyroidism presented to ER with c/o generalized weakness. History obtained from patient and outpatient chart review. States progressive weakness over past week, but admits may have been having some generalized weakness starting prior. States prior was walking daily and able to complete all her ADLs independently. Lives independently in apartment. This week noticed increased weakness with walking. Denies any falls. Denies myalgias or arthralgias. Seen in [facility] ER 09/27/23 for weakness and discharged home. States having intermittent "fluttering" sensation in chest. Has occurred with sitting and is unsure how long it lasts. Denies any associated symptoms at the time. Denies CP, SOB, dizziness, syncope. Patient states has been out of her levothyroxine but is unsure how long. Per outpatient chart review patient has not seen PCPs office since 2021. Last Rx for levothyroxine filled was 03/2023 for 90 day supply. Denies fever/chills, diaphoresis, N/V/D/C, CALVERT, dizziness, syncope, vision changes, neck pain, CP, SOB, orthopnea, cough, sore throat, choking, otalgia, rhinorrhea, abdominal pain, paresthesias, extremity edema, rashes, urinary symptoms. Sandra Terrell is emergency contact. Patient doesn't have his number currently. He lives in [place], [place]. Admission Exam Per Admitting Provider General: no distress, WDWN Head: normocephalic, atraumatic Eyes: PERRL, EOM's intact, conjunctiva non-injected, anicteric ENT: normal inspection external ears, nose, mucous membranes moist Neck: supple, trachea midline Lungs: clear, no respiratory distress, no wheezing/rhonchi/rales CV: RRR, no murmur, no pretibial edema Abd: normal BS, soft, non-tender Ext: no cyanosis, no calf tenderness, strength equal and 5/5 bilateral upper and lower extremities Neuro: Alert, oriented to person, place, month and year. did not know day or president, no focal deficits noted, normal affect Skin: warm, diffuse dry skin Principal Diagnosis Severe hypothyroidism with ambulatory dysfunction/weakness Discharge Exam General: Lying comfortably in bed, not in distress, on room air HEENT: EOMI, VINCNET, MMM Chest: Clear breath sounds bilaterally, no wheezes or crackles CVS: Regular rate and rhythm, normal heart sounds, no murmur Abdomen: Soft, non tender, not distended, normal bowel sounds Neuro: Awake, alert, oriented, conversing well, non focal Extremities: No edema Discharge Data Allergies Allergy/AdvReac Type Severity Reaction Status Date / Time No Known Allergies Allergy Unverified 09/29/23 13:17 Consultations 09/29/23 13:20 ED Decision to Admit Stat Ordered Studies Laboratory Results WBC 5.71 K/ul (4.8-10.8) 09/30/23 06:22 RBC 4.61 M/uL (4.20-5.40) 09/30/23 06:22 Hgb 14.7 g/dl (12.0-16.0) 09/30/23 06:22 Hct 43.4 % (37.0-47.0) 09/30/23 06:22 MCV 94.1 fL (80.0-100.0) 09/30/23 06:22 MCH 31.9 pg (25.0-34.0) 09/30/23 06:22 MCHC 33.9 g/dL (32.0-36.0) 09/30/23 06:22 RDW Std Deviation 48.7 fL (36.4-46.3) H 09/30/23 06:22 RDW Coeff of Abiodun 14.1 % (11.5-14.5) 09/30/23 06:22 Plt Count 172 K/uL (130-400) 09/30/23 06:22 MPV 9.5 fL (9.4-12.4) 09/30/23 06:22 Immature Gran % (Auto) 0.3 % 09/29/23 10:32 Neut % (Auto) 74.5 % 09/29/23 10:32 Lymph % (Auto) 17.4 % 09/29/23 10:32 [place] % (Auto) 6.4 % 09/29/23 10:32 Eos % (Auto) 1.1 % 09/29/23 10:32 Baso % (Auto) 0.3 % 09/29/23 10:32 Neut # (Auto) 4.80 K/uL (1.40-6.50) 09/29/23 10:32 Lymph # (Auto) 1.12 K/uL (1.20-3.40) L 09/29/23 10:32 [place] # (Auto) 0.41 K/uL (0.11-0.59) 09/29/23 10:32 Eos # (Auto) 0.07 K/uL (0.00-0.50) 09/29/23 10:32 Baso # (Auto) 0.02 K/uL (0.00-0.20) 09/29/23 10:32 Immature Gran # (Auto) 0.02 K/uL (0.01-0.20) 09/29/23 10:32 PT 10.9 Seconds (9.0-12.0) 09/29/23 10:32 INR 1.0 (0.9-1.1) 09/29/23 10:32 APTT 29 Seconds (21-31) 09/29/23 10:32 PTT Ratio 1.1 09/29/23 10:32 Sodium 135 mmol/L (136-145) L 09/30/23 06:22 Potassium 3.9 mmol/L (3.5-5.1) 09/30/23 06:22 Chloride 105 mmol/L (98-107) 09/30/23 06:22 Carbon Dioxide 22 mmol/L (21-32) 09/30/23 06:22 Anion Gap 8 (3-11) 09/30/23 06:22 BUN 9 mg/dl (6-23) 09/30/23 06:22 Creatinine 0.95 mg/dl (0.6-1.2) 09/30/23 06:22 Est Cr Clr Drug Dosing 41.0 ml/min 09/30/23 06:22 Est GFR ( Amer) 62.0 ml/min 09/30/23 06:22 Est GFR (Non-Af Amer) 53.5 ml/min 09/30/23 06:22 BUN/Creatinine Ratio 9.5 (10-20) L 09/30/23 06:22 Glucose 85 mg/dl (70-99(Fasting)) 09/30/23 06:22 Calcium 9.2 mg/dl (8.6-10.3) 09/30/23 06:22 Magnesium 2.2 mg/dl (1.7-2.4) 09/29/23 10:32 Total Bilirubin 1.2 mg/dl (0.2-1.0) H 09/29/23 10:32 AST 19 U/L (13-39) 09/29/23 10:32 ALT 8 U/L (7-52) 09/29/23 10:32 Alkaline Phosphatase 92 U/L (34-104) 09/29/23 10:32 Troponin I High Sens 3.4 pg/ml (0-14) 09/29/23 10:32 Total Protein 7.1 gm/dl (6.0-8.3) 09/29/23 10:32 Albumin 4.3 gm/dl (3.4-5.0) 09/29/23 10:32 Globulin 2.8 gm/dl (2.5-4.0) 09/29/23 10:32 Albumin/Globulin Ratio 1.5 (0.9-2) 09/29/23 10:32 Lipase 17 U/L (11-82) 09/29/23 10:32 TSH 174.733 uIu/ml (0.300-4.500) H 09/29/23 10:32 Free T4 < 0.25 ng/dl (0.61-1.60) L 09/29/23 10:32 Urine Color Yellow 09/29/23 Unknown Urine Appearance Clear (Clear) 09/29/23 Unknown Urine pH 6.0 (4.5-7.5) 09/29/23 Unknown Ur Specific [place] 1.006 (1.000-1.030) 09/29/23 Unknown Urine Protein Negative (Negative) 09/29/23 Unknown Urine Glucose (UA) Negative (Negative) 09/29/23 Unknown Urine Ketones 1+ (Negative) H 09/29/23 Unknown Urine Blood Negative (Negative) 09/29/23 Unknown Urine Nitrite Negative (Negative) 09/29/23 Unknown Urine Bilirubin Negative (Negative) 09/29/23 Unknown Urine Urobilinogen Negative (Negative) 09/29/23 Unknown Ur Leukocyte Esterase 2+ (Negative) H 09/29/23 Unknown Urine WBC (Auto) 11-20 /hpf (0-5) H 09/29/23 Unknown Urine RBC (Auto) 0-2 /hpf (0-2) 09/29/23 Unknown U Hyaline Cast (Auto) 0-2 /lpf (0-2) 09/29/23 Unknown U Epithel Cells (Auto) 0-2 /hpf (0-2) 09/29/23 Unknown Urine Bacteria (Auto) None Seen (None Seen) 09/29/23 Unknown SARS-CoV-2 (PCR) NEGATIVE (Negative) 09/29/23 10:47 Influenza Type A (PCR) Negative (Neg) 09/29/23 10:47 Influenza Type B (PCR) Negative (Neg) 09/29/23 10:47 RSV (RT-PCR) Negative (Neg) 09/29/23 10:47 Impressions Chest X-Ray 09/29/23 10:31 XR chest 1V portable CLINICAL HISTORY: Chest pain, nonspecific TECHNIQUE: Single frontal radiograph of the chest was obtained. Comparison: Comparison is made to chest radiograph 09/26/2013 FINDINGS: No lines and tubes are seen. The cardiomediastinal silhouette is normal. The lungs are clear. No evidence of pleural effusion or pneumothorax. IMPRESSION: No acute chest disease. ACT 112: Negative or not required by law. Electronically signed by: Kirill Joseph M.D. 09/29/2023 10:47 AM Hospital Course (1) Ambulatory dysfunction: (2) Palpitations: (3) Post-surgical hypothyroidism: (4) Abnormal urinalysis: Plan 88-year-old female with PMH postsurgical hypothyroidism presented to ER with c/o progressive generalized weakness for at least past week. In ER vitals stable. TSH: 174. Na: 134, no other significant electrolyte abnormalities, no leukocytosis. In ER acute rehab placement at [facility] was attempted however reported no bed availability at this time. Suspect weakness secondary to hypothyroidism Post surgical severe hypothyroidism with medical non-compliance with weakness/ambulatory dysfunction - History of partial thyroidectomy - TSH 174, fT4 <0.25. Unknown last dose of synthroid as she ran out - Resumed on home dose on synthroid 88 mcg - Recommend checking TSH, fT4 in the next few days to see response, and if improving in 6 weeks for further dose adjustment, otherwise will need input from endocrinology. - Discharging to [facility] as unsafe for discharge home with her weakness Abnormal UA, possible UTI- UA suspicious, urine clx was not definitive. Given her weakness and ambulatory dysfunction in setting of suspicious UA, will complete 3 day course of bactrim. Total Time Total Time Spent Total Time Spent (In Minutes): 32 Discharge Plan Discharge Items Patient Disposition: Transfer Inpatient Rehab Fac Reason For Visit: WEAKNESS Discharge Diagnosis: Severe hypothyroidism, ambulatory dysfunction, weakness Condition on Discharge: Fair Activity: Resume your previous activity Non-emergency contact: Primary Care Provider Call non-emergency contact if: you have any medication questions, your symptoms worsen and you have a fever Follow-up/Referrals: PCP,NO [Primary Care Provider] - Diet: Regular Addtl Attending Provider Instructions: You were here for weakness likely due to severe hypothyroidism. Continue synthroid. Recommend repeat TSH, fT4 in the next 3-4 days to ensure it is improving and if so, in the next 6 weeks for further adjustment of synthroid Pending Studies at Discharge: No Stand-Alone Forms: My [facility] Skilled Items Patient informed of condition?: Yes DNR: No Discharge Level of Care: Acute rehab Communicable Disease: No Discharge Prognosis: Stable Lines: None Urinary Catheter: No Medications and DC Order Prescriptions: New sulfamethoxazole-trimethoprim [Bactrim DS] 800-160 mg Tablet 1 tab PO BID 2 Days Qty: 3 0RF Continued levothyroxine 88 mcg tablet 88 mcg PO DAILY multivitamin [Multi-Vitamin] Tablet 1 tab PO DAILY Discharge Orders: Discharge Order (Routine); Ordered 10/01/23 Ordered By: Walter Montague Admission Data Admit Date/Time: 09/29/23 13:32 Attending Provider: Walter Montague Admit Provider: Erwin Tucker Primary Care Provider: PCP,NO Other Providers: [facility]; Erwin Tucker
[2023-10-01 11:17] VITALS: PULSE 60; RESP 16; TEMP 97.7; O2SAT 96
--- NOTE | 2023-10-01 12:06 | Electrocardiogram Report ---
Test Reason : Blood Pressure : */* mmHG Vent. Rate : 61 BPM Atrial Rate : 61 BPM P-R Int : 128 ms QRS Dur : 74 ms QT Int : 356 ms P-R-T Axes : 58 -21 -56 degrees QTcB Int : 358 ms Normal sinus rhythm Low voltage QRS Diffuse Minor Nonspecific T wave abnormality Abnormal ECG When compared with ECG of 29-Sep-2023 10:31, No significant change Confirmed by Richie Do ([id number]) on 10/01/2023 12:06:20 PM Referred By: REFERRED SELF Confirmed By: Richie Do
[2023-10-01 12:10] VITALS: BP 149/81
== END 2023-10-01 12:40 | DRG 644 ==
LOC: ED 10:24 → 2N 13:32 → SUATTDRO 13:32 → 2N 16:08

== ENCOUNTER 2024-02-11 09:42 | Inpatient (IN) ==
--- OUTSIDE RECORDS SUMMARY | 2024-02-11 09:45 | External Medical Summary | Summary of Care ---
Author Name Unknown Organization [facility] Address [address] [place] [address] Phone [phone] Care Team Providers Care Horticulture Professor Name Role Phone Unavailable Primary Care Provider Unavailabl e Reason for Visit * Reason Comments eRx-Medication Refill Encounter Details Date Type Department Care Team (Late st Contact Info) Description 09/29/2023 Refill General Internal Medicine [facility] [address] [facility] [place] [address] Walter Kamara PA-C [address] [facility] [place] [address] Postsurgical hypothyroidism Allergies No known active allergiesdocumented as of this encounter (statuses as of 10/02/2023) Medications Medication Sig Dispensed Refills Start Date End Date Status MULTIVITAMINS OR TABS daily 0 03/19/2003 Act catracho Levothyroxine Sodium 88 MCG Oral Tablet (Levoxyl)Indications:Po stsurgical hypothyroidism TAKE 1 TABLET BY MOUTH EVERY MORNING on empty stomach 90 Tablet 04/03/2023 Active documented as of this encounter (statuses as of 10/02/2023) Active Problems Problem Noted Date Diagnosed Date ADVANCE DIRECTIVE INFORMATION 06/10/2004 Overview: Brochure given to pt. Postsurgical hypothyroidism documented as of this encounter (statuses as of 10/02/2023) Social History Tobacco Use Types Packs/Day Years [...] encounter Miscellaneous Notes * Telephone Encounter - Sarah Ortiz [facility] - 10/02/2023 5:22 AM EDT Refused Prescriptions: Disp Refills Levothyroxine Sodium 88 MCG Oral Tablet (L*90 Tab*0 Sig: TAKE 1TABLET BY MOUTH EVERY MORNING on empty stomachRefused By: SARAH ORTIZ for Refusal: Patient Should Contact Provider First * Telephone Encounter - Sarah Ortiz RP - 10/02/2023 5:22 AM EDT Pt notified 3 times of needing ov/labs * Telephone Encounter - Tatyana, [facility] - 10/01/2023 9:44 AM EDT Pending Prescriptions: Disp Refills Levothyroxine Sodium 88 MCG Oral Tablet [P*90 Tab*0 Sig: TAKE 1TABLET BY MOUTH EVERY MORNING on empty stomach documented in this encounter Plan of Treatment Health Maintenance Due Date Last Done Comments DXA Scan 1935 DTaP,Tdap,and Td Vaccines (1 - Tdap) 08/06/1954 Zoster Vaccines (1 of 2) 08/06/1985 Pneumococcal Vaccine: 65+ Years (1 of 1 - PCV) 08/06/2000 Depression Screening 02/26/2019 02/26/2018 COVID-19 Vaccine ( - 2022-24 season) 2022 TSH 11/15/2022 11/15/2021, 08/0 09/2021, [...]
--- OUTSIDE RECORDS SUMMARY | 2024-02-11 09:45 | External Medical Summary ---
Author Name Unknown Address Unknown Organization [facility] [place] [address] Laboratory Report Ordering Provider Test Date Status MACY CROWDER 10/02/2023 10:20:56 Final Observation Date Value Abnormality Reference (Units ) Status WBC, Total 10/02/2023 10:20:56 5.45 4.00-10.8 0 (K/uL) Final RBC 10/02/2023 10:20:56 4.50 3.85-5.15 (M/uL) Final Hemoglobin 10/02/2023 10:20:56 14.4 12.0-15.3 (g/dL) Final HCT 10/02/2023 10:20:56 43.8 36.0-45.2 (%) Final MCV 10/02/2023 10:20:56 97.3 81.5-97.5 (fL) Final MCH 10/02/2023 10:20:56 32.0 27.0-34.0 (pg) Final MCHC 10/02/2023 10:20:56 32.9 32.0-36.0 (g/dL) Final RDW 10/02/2023 10:20:56 14.9 11.5-15.5 (%) Final Platelets 10/02/2023 10:20:56 190 140-400 (K /uL) Final MPV 10/02/2023 10:20:56 10.1 6.6-11.1 ( fL) Final Performing Location [facility] [place] [address]
--- OUTSIDE RECORDS SUMMARY | 2024-02-11 09:45 | External Medical Summary ---
Author Name Unknown Address Unknown Organization [facility] [place] [address] Laboratory Report Ordering Provider Test Date Status MACY CROWDER 10/02/2023 10:20:56 Final Observation Date Value Abnormality Reference (Units ) Status BUN 10/02/2023 10:20:56 7 6-20 (mg/dL) Final Creatinine 10/02/2023 10:20:56 1.2 Above high normal 0.5-1.0 (mg/dL) Final Glomerular filtration rate/1.73 sq M.predicted [Volume Rate/Area] in Serum, Plasma or Blood by Creatinine-based formula (CKD-EPI) 10/02/2023 10:20:56 42 Below low normal >=60 (mL/min) Final eGFR is calculated based on the CKD-EPI 2020 equation. Sodium 10/02/2023 10:20:56 134 Below low normal 135 -146 (mmol/L) Final Potassium 10/02/2023 10:20:56 4.4 3.5-5.1 (m mol/L) Final Cl 10/02/2023 10:20:56 98 98-107 (mm ol/L) Final CO2 10/02/2023 10:20:56 23 22-32 (mmo l/L) Final Anion gap 10/02/2023 10:20:56 13 7-15 (mmol /L) Final Glucose 10/02/2023 10:20:56 81 70-120 (mg /dL) Final Calcium 10/02/2023 10:20:56 9.6 8.4-10.2 ( mg/dL) Final Performing Location [facility] [place] [address]
--- NOTE | 2024-02-11 11:12 | Emergency Department Note ---
Impression & Plan SOB (shortness of breath), Weakness, Hypoxia ED Provider Note NAME: EMIGDIO SUMNER AGE: 88 SEX: F : 1935 ARRIVES VIA: Ambulance INFORMANT: Patient, ED PROVIDER(S): Librado Beltran DO CHIEF COMPLAINT: Difficulty breathing HPI: The patient is an 88-year-old female who presented to the emergency department for an evaluation of shortness of breath. The patient states that she been feeling very weak and short of breath especially with exertion. She denies having any chest pain or leg swelling. The patient denies having any recent fever or cough. She lives in an apartment complex by herself and is unsure if she may have been exposed to an infection. The patient states she has been feeling this way over the last couple of days. She denies having any abdominal pain. She denies having any black or tarry stool. The patient denies any significant tobacco use. ROS: See above HPI for pertinent positives & negatives. A total of 10 systems reviewed and were otherwise negative. PAST MEDICAL HISTORY: See Below PAST SURGICAL HISTORY: See Below FAMILY HISTORY: See Below SOCIAL HISTORY: See Below HOME MEDICATIONS: See Below ALLERGIES: See Below VITALS: See Below PHYSICAL EXAMINATION: GENERAL: Patient is awake alert in no acute distress patient is resting comfortably and showing no signs of anxiety EYES: The conjunctivae are clear. The pupils are round and reactive. EARS, NOSE, MOUTH AND THROAT: The nose is without any evidence of any deformity. NECK: The neck is nontender and supple. RESPIRATORY: Normal respiratory effort is noted there is no evidence of wheezing rhonchi or rales CARDIOVASCULAR: Regular rate and rhythm noted there no murmurs rubs or gallops normal S1 normal S2. GASTROINTESTINAL: The abdomen is soft. Abdomen is nontender. MUSCULOSKELETAL/EXTREMITIES: There is no evidence of gross deformity full range of motion is noted in the hips and shoulders. SKIN: The skin is warm and dry. There is no significant pedal edema noted. NEUROLOGIC: Patient is awake alert and oriented x3. MEDICAL DECISION MAKING: Patient is an 88-year-old female who presented to the emergency department for an evaluation of generalized weakness and difficulty breathing. The patient was found to be hypoxic on multiple occasions. She was not febrile. She did not complain of any specific chest pain. I discussed the patient's laboratory and radiographic studies with her. She was placed on supplemental oxygen. She was significantly improved. She was not significantly anemic. Patient was not found to be in pulmonary edema. D-dimer was negative. I am unsure exactly of the cause of the patient's respiratory issues but given her findings I discussed her condition with the on-call [facility] hospitalist. They have agreed to evaluate the patient in the emergency department for further management and disposition. Triage Nursing notes reviewed. Prior medical records reviewed Vital Signs: reviewed and remarkable for hypoxia. Differential diagnosis: Reactive airway disease, pneumonia, pneumothorax, COPD, CHF, infections, cardiac ischemia, pulmonary embolism, musculoskeletal, gastrointestinal, as well as other pathologies. ER treatment provided: See below Diagnostics interpreted by me: ECG: EKG was obtained in the emergency department. My interpretation is atrial fibrillation at 69 bpm. There were no PVCs noted. Nonspecific ST and T wave abnormalities were noted. This was compared to a tracing from October 01, 2023. Atrial fibrillation has replaced sinus rhythm. Cardiac Monitoring: An order was placed for continuous cardiac monitoring. The monitor shows a rate of 63 bpm with atrial fibrillation. Laboratory studies: As stated above and show below. Imaging studies: See below. Radiographic imaging was reviewed by myself Consultation(s): I discussed this case with Magaly who is on-call for the [facility]ist group. 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 Beliefs That Will Affect Care: None Current Living Situation: Alone Feels Safe at Home: Yes Assistive Devices: None Allergies Allergies Allergy/AdvReac Type Severity Reaction Status Date / Time No Known Allergies Allergy Unverified 02/11/24 12:39 Home Meds Home Medications Medication Instructions Recorded Confirmed levothyroxine 88 mcg tablet 88 mcg PO DAILY 09/29/23 02/11/24 multivitamin 1 tab PO DAILY 09/29/23 02/11/24 Results & Data (ED) Vital Signs Vital Signs - 24 hr 02/11/24 09:46 02/11/24 09:57 02/11/24 10:00 Temperature 35.5 C L Temperature Source Axillary Pulse Rate 70 56 L 62 Pulse Rate from SpO2 Sensor Pulse Rhythm Regular Pulse Strength Normal Respiratory Rate 20 24 Respiratory Effort / Characteristics Non-Labored Spontaneous Respiratory Depth Normal Respiratory Pattern Regular Blood Pressure 156/65 H 156/65 H Blood Pressure Mean 95 95 Blood Pressure Position Sitting Pulse Oximetry 97 Oxygen Delivery Method Room Air Oxygen Flow Rate Sepsis Recent Fever Within 48 Hours No Sepsis New/Unexplained Change in Mental Status N/A Sepsis Action Taken by Nursing No Action Required Oxygen Flow Rate - Titration Pulse Oximetry Post Tiitration 02/11/24 10:30 02/11/24 11:00 02/11/24 11:03 Temperature Temperature Source Pulse Rate 54 L 58 L Pulse Rate from SpO2 Sensor 52 L 56 L Pulse Rhythm Pulse Strength Respiratory Rate 18 16 Respiratory Effort / Characteristics Respiratory Depth Respiratory Pattern Blood Pressure 128/63 137/67 Blood Pressure Mean 84 90 Blood Pressure Position Pulse Oximetry 96 90 88 L Oxygen Delivery Method Nasal Cannula Room Air Nasal Cannula Oxygen Flow Rate 2 0 Sepsis Recent Fever Within 48 Hours Sepsis New/Unexplained Change in Mental Status Sepsis Action Taken by Nursing Oxygen Flow Rate - Titration 2 Pulse Oximetry Post Tiitration 90 02/11/24 11:21 02/11/24 12:03 02/11/24 13:03 Temperature Temperature Source Pulse Rate 58 L 57 L 61 Pulse Rate from SpO2 Sensor 57 L 57 L 61 Pulse Rhythm Pulse Strength Respiratory Rate 16 14 20 Respiratory Effort / Characteristics Respiratory Depth Respiratory Pattern Blood Pressure 111/61 134/73 133/73 Blood Pressure Mean 77 93 93 Blood Pressure Position Pulse Oximetry 96 97 98 Oxygen Delivery Method Nasal Cannula Nasal Cannula Nasal Cannula Oxygen Flow Rate 2 2 2 Sepsis Recent Fever Within 48 Hours Sepsis New/Unexplained Change in Mental Status Sepsis Action Taken by Nursing Oxygen Flow Rate - Titration Pulse Oximetry Post Tiitration 02/11/24 13:33 Temperature Temperature Source Pulse Rate 63 Pulse Rate from SpO2 Sensor 62 Pulse Rhythm Pulse Strength Respiratory Rate 20 Respiratory Effort / Characteristics Respiratory Depth Respiratory Pattern Blood Pressure 139/79 Blood Pressure Mean 99 Blood Pressure Position Pulse Oximetry 97 Oxygen Delivery Method Nasal Cannula Oxygen Flow Rate 2 Sepsis Recent Fever Within 48 Hours Sepsis New/Unexplained Change in Mental Status Sepsis Action Taken by Nursing Oxygen Flow Rate - Titration Pulse Oximetry Post Tiitration Home Medications Current Medication List: was personally reviewed by me Laboratory Data Attestation: I reviewed the patient's lab results. 02/11/24 09:57 02/11/24 09:57 Lab Results 02/11/24 02/11/24 02/11/24 Range/Units 09:57 09:57 09:57 WBC 5.24 (4.8-10.8) K/ul RBC 4.64 (4.20-5.40) M/uL Hgb 15.3 (12.0-16.0) g/dl Hct 43.5 (37.0-47.0) % MCV 93.8 (80.0-100.0) fL MCH 33.0 (25.0-34.0) pg MCHC 35.2 (32.0-36.0) g/dL RDW Std Deviation 48.9 H (36.4-46.3) fL RDW Coeff of Abiodun 14.2 (11.5-14.5) % Plt Count 187 (130-400) K/uL MPV 10.2 (9.4-12.4) fL Immature Gran % (Auto) 0.2 % Neut % (Auto) 65.0 % Lymph % (Auto) 26.1 % [place] % (Auto) 6.9 % Eos % (Auto) 1.0 % Baso % (Auto) 0.8 % Neut # (Auto) 3.41 (1.40-6.50) K/uL Lymph # (Auto) 1.37 (1.20-3.40) K/uL [place] # (Auto) 0.36 (0.11-0.59) K/uL Eos # (Auto) 0.05 (0.00-0.50) K/uL Baso # (Auto) 0.04 (0.00-0.20) K/uL Immature Gran # (Auto) 0.01 (0.01-0.20) K/uL PT 10.9 (9.0-12.0) Seconds INR 1.0 (0.9-1.1) APTT 28 (21-31) Seconds PTT Ratio 1.0 D-Dimer 290 (0-500) ug/L FEU VBG pH (7.36-7.41) VBG pCO2 (38-50) mmHg VBG pO2 mmHg VBG HCO3 mmol/L VBG O2 Saturation % VBG Base Excess mEq/L Sodium 133 L (136-145) mmol/L Potassium 3.8 (3.5-5.1) mmol/L Chloride 96 L (98-107) mmol/L Carbon Dioxide 23 (21-32) mmol/L Anion Gap 14 H (3-11) BUN 16 (6-23) mg/dl Creatinine 1.06 (0.6-1.2) mg/dl Est Cr Clr Drug Dosing 38.7 ml/min eGFR 50.53 BUN/Creatinine Ratio 15.1 (10-20) Glucose 78 (70-99(Fasting)) mg/dl Calcium 10.3 (8.6-10.3) mg/dl Magnesium 2.3 (1.7-2.4) mg/dl Total Bilirubin 1.1 H (0.2-1.0) mg/dl AST 30 (13-39) U/L ALT 17 (7-52) U/L Alkaline Phosphatase 88 (34-104) U/L Troponin I High Sens 5.3 (0-14) pg/ml Total Protein 7.5 (6.0-8.3) gm/dl Albumin 4.3 (3.4-5.0) gm/dl Globulin 3.2 (2.5-4.0) gm/dl Albumin/Globulin Ratio 1.3 (0.9-2) Lipase 27 (11-82) U/L TSH 253.077 H (0.300-4.500) uIu/ml Adenovirus (PCR) Not Detected (NotDetected) B. pertussis DNA (PCR) Not Detected (NotDetected) B.parapertussis DNA PCR Not Detected (NotDetected) C. pneumoniae DNA (PCR) Not Detected (NotDetected) Coronavirus OC43 (PCR) Not Detected (NotDetected) Coronavirus HKU1 (PCR) Not Detected (NotDetected) Coronavirus 229E (PCR) Not Detected (NotDetected) SARS-CoV-2 (PCR) NEGATIVE Not Detected (Negative) Coronavirus NL63 (PCR) Not Detected (NotDetected) Human Metapneumovir PCR Not Detected (NotDetected) Influenza Type A (PCR) Negative Not Detected (Neg) Influenza Type B (PCR) Negative (Neg) M. pneumoniae (PCR) (NotDetected) Parainfluenza 1 (PCR) (NotDetected) Parainfluenza 2 (PCR) (NotDetected) Parainfluenza 3 (PCR) (NotDetected) Parainfluenza 4 (PCR) (NotDetected) RSV (RT-PCR) (Neg) RSV (PCR) (NotDetected) Entero/Rhino (PCR) (NotDetected) 02/11/24 02/11/24 Range/Units 09:57 12:25 WBC (4.8-10.8) K/ul RBC (4.20-5.40) M/uL Hgb (12.0-16.0) g/dl Hct (37.0-47.0) % MCV (80.0-100.0) fL MCH (25.0-34.0) pg MCHC (32.0-36.0) g/dL RDW Std Deviation (36.4-46.3) fL RDW Coeff of Abiodun (11.5-14.5) % Plt Count (130-400) K/uL MPV (9.4-12.4) fL Immature Gran % (Auto) % Neut % (Auto) % Lymph % (Auto) % [place] % (Auto) % Eos % (Auto) % Baso % (Auto) % Neut # (Auto) (1.40-6.50) K/uL Lymph # (Auto) (1.20-3.40) K/uL [place] # (Auto) (0.11-0.59) K/uL Eos # (Auto) (0.00-0.50) K/uL Baso # (Auto) (0.00-0.20) K/uL Immature Gran # (Auto) (0.01-0.20) K/uL PT (9.0-12.0) Seconds INR (0.9-1.1) APTT (21-31) Seconds PTT Ratio D-Dimer (0-500) ug/L FEU VBG pH 7.36 (7.36-7.41) VBG pCO2 46 (38-50) mmHg VBG pO2 30 mmHg VBG HCO3 26 mmol/L VBG O2 Saturation < 60.0 % VBG Base Excess 0.1 mEq/L Sodium (136-145) mmol/L Potassium (3.5-5.1) mmol/L Chloride (98-107) mmol/L Carbon Dioxide (21-32) mmol/L Anion Gap (3-11) BUN (6-23) mg/dl Creatinine (0.6-1.2) mg/dl Est Cr Clr Drug Dosing ml/min eGFR BUN/Creatinine Ratio (10-20) Glucose (70-99(Fasting)) mg/dl Calcium (8.6-10.3) mg/dl Magnesium (1.7-2.4) mg/dl Total Bilirubin (0.2-1.0) mg/dl AST (13-39) U/L ALT (7-52) U/L Alkaline Phosphatase (34-104) U/L Troponin I High Sens (0-14) pg/ml Total Protein (6.0-8.3) gm/dl Albumin (3.4-5.0) gm/dl Globulin (2.5-4.0) gm/dl Albumin/Globulin Ratio (0.9-2) Lipase (11-82) U/L TSH (0.300-4.500) uIu/ml Adenovirus (PCR) (NotDetected) B. pertussis DNA (PCR) (NotDetected) B.parapertussis DNA PCR (NotDetected) C. pneumoniae DNA (PCR) (NotDetected) Coronavirus OC43 (PCR) (NotDetected) Coronavirus HKU1 (PCR) (NotDetected) Coronavirus 229E (PCR) (NotDetected) SARS-CoV-2 (PCR) (Negative) Coronavirus NL63 (PCR) (NotDetected) Human Metapneumovir PCR (NotDetected) Influenza Type A (PCR) (Neg) Influenza Type B (PCR) Not Detected (Neg) M. pneumoniae (PCR) Not Detected (NotDetected) Parainfluenza 1 (PCR) Not Detected (NotDetected) Parainfluenza 2 (PCR) Not Detected (NotDetected) Parainfluenza 3 (PCR) Not Detected (NotDetected) Parainfluenza 4 (PCR) Not Detected (NotDetected) RSV (RT-PCR) Negative (Neg) RSV (PCR) Not Detected (NotDetected) Entero/Rhino (PCR) Not Detected (NotDetected) Imaging Data Attestation: I personally reviewed and interpreted this imaging study as follows: My Impression: 1 view chest x-ray was obtained in the emergency department. My interpretation is no free air or definite infiltrate, there is a right paratracheal mass, final report below. Radiologist's Impression: Chest X-Ray 02/11/24 11:05 XR chest 1V portable CLINICAL HISTORY: Chest pain, nonspecific TECHNIQUE: Single frontal radiograph of the chest was obtained. Comparison: Comparison is made to chest radiograph 09/29/2023 FINDINGS: No lines and tubes are seen. The cardiomediastinal silhouette is normal. The lungs are clear. No evidence of pleural effusion or pneumothorax. A skin fold is seen on the right. IMPRESSION: No acute chest disease. ACT 112: Negative or not required by law. Electronically signed by: Kirill Joseph M.D. 02/11/2024 12:[address] 02/11/24 13:21 EXAM: CT Chest Without Intravenous Contrast INDICATION: Right paratracheal mass TECHNIQUE: Axial computed tomography images of the chest without intravenous contrast. Sagittal and coronal reformatted images were created and reviewed. This CT exam was performed using one or more of the following dose reduction techniques: automated exposure control, adjustment of the mA and/or kV according to patient size, and/or use of iterative reconstruction technique. COMPARISON: Chest x-ray 09/29/2023 FINDINGS: Limitations: None. Lungs and pleural spaces: No abnormality noted. No mass. No consolidation. No pneumothorax. No significant effusion. Heart: Small pericardial effusion. Dense coronary calcification. Thyroid: Absent left thyroid presumably removed. Small right thyroid possibly resected with some residual tissue in the thyroid bed. No mass noted. Bones/joints: Degenerative changes noted throughout the spine. No acute osseous abnormality seen. Soft tissues: No significant abnormality noted. Vasculature: No abnormality noted. No thoracic aortic aneurysm. Lymph nodes: No enlarged lymph nodes. Kidneys and ureters: There is a 1 cm diameter hyperdense nodule in the upper pole of the left kidney. Stomach and bowel: Diverticulosis in the splenic flexure region of the colon noted. No visible upper abdominal inflammatory process. IMPRESSION: 1. No paratracheal mass is identified. 2. Small pericardial effusion. 3. 1 cm indeterminate hypodense nodule in the left kidney. In the absence of a prior study to compare, nonemergent renal ultrasound would better assess. ACT 112: Negative or not required by law. Electronically signed by Kaley Nichole 02-11-2024 3:30 PM Discharge Plan Visit Data Chief Complaint: Shortness of Breath/Dyspnea ED Provider: Librado Beltran Discharge Problem: SOB (shortness of breath), Weakness, Hypoxia Patient Disposition: Being Evaluated by Hospitalist
[2024-02-11 11:29] LABS: Basophils # (auto) 0.04 K/uL (0.00-0.20); Basophils % (auto) 0.8 %; Eosinophils # (auto) 0.05 K/uL (0.00-0.50); Hematocrit (blood only) 43.5 % (37.0-47.0); Hemoglobin 15.3 g/dl (12.0-16.0); Immature Granulocytes # (auto) 0.01 K/uL (0.01-0.20); Immature Granulocytes % (auto) 0.2 %; Lymphocytes # (auto) 1.37 K/uL (1.20-3.40); Lymphocytes % (auto) 26.1 %; Mean Corpuscular Hgb Conc 35.2 g/dL (32.0-36.0); Mean Corpuscular Volume 93.8 fL (80.0-100.0); Mean Platelet Volume 10.2 fL (9.4-12.4); Monocytes # (auto) 0.36 K/uL (0.11-0.59); Monocytes % (auto) 6.9 %; Neutrophils # (auto) 3.41 K/uL (1.40-6.50); Platelet Count 187 K/uL (130-400); RDW Coefficient of Variation 14.2 % (11.5-14.5); RDW Standard Deviation 48.9 fL (36.4-46.3); Red Blood Count 4.64 M/uL (4.20-5.40); White Blood Count 5.24 K/ul (4.8-10.8)
[2024-02-11 11:35] LABS: Albumin Globulin Ratio 1.3 (0.9-2); Albumin Level 4.3 gm/dl (3.4-5.0); BUN Creatinine Ratio 15.1 (10-20); Bilirubin,Total 1.1 mg/dl (0.2-1.0); Calcium 10.3 mg/dl (8.6-10.3); Creatinine Clr Calc Pharmacy 38.7 ml/min; Globulin 3.2 gm/dl (2.5-4.0); Potassium 3.8 mmol/L (3.5-5.1); Total Protein 7.5 gm/dl (6.0-8.3)
[2024-02-11 11:41] LABS: Troponin I High Sensitivity 5.3 pg/ml (0-14)
[2024-02-11 11:54] LABS: Influenza A virus by PCR Negative (Neg); Influenza B virus by PCR Negative (Neg); RSV by PCR Negative (Neg); SARS CoV2 RNA(COVID-19) Ceph NEGATIVE (Negative)
[2024-02-11 11:55] LABS: D Dimer 290 ug/L FEU (0-500); Partial Thromboplastin Time 28 Seconds (21-31); Prothrombin Time 10.9 Seconds (9.0-12.0)
--- NOTE | 2024-02-11 12:30 | XRay Report ---
XR chest 1V portable CLINICAL HISTORY: Chest pain, nonspecific TECHNIQUE: Single frontal radiograph of the chest was obtained. Comparison: Comparison is made to chest radiograph 09/29/2023 FINDINGS: No lines and tubes are seen. The cardiomediastinal silhouette is normal. The lungs are clear. No evid ence of pleural effusion or pneumothorax. A skin fold is seen on the right. IMPRESSION: No acute chest disease. ACT 112: Negative or not required by law. Electronically signed by: Kirill Joseph M.D. 02/11/2024 12:28 PM
[2024-02-11 12:33] LABS: Base Excess VBG 0.1 mEq/L; HCO3 VBG 26 mmol/L; Oxygen Saturation VBG < 60.0 %; PCO2 VBG 46 mmHg (38-50); PO2 VBG 30 mmHg; pH VBG 7.36 (7.36-7.41)
--- NOTE | 2024-02-11 13:33 | History & Physical Report ---
Date of Service February 11, 2024 Assessment & Plan (1) Acute hypoxic respiratory failure: (2) Generalized weakness: (3) SOB (shortness of breath): Plan: This is a 88yo F with a PMH of hypothyroidism who presents from home with weakness and dyspnea exertion over the past few days. Hypoxic in high 80s with exertion/movement, 98% on 2L NC - not on home O2. Wean as tolerated Afebrile, no leukocytosis D-dimer WNL, VBG WNL, Viral resp panel negative ? Paratracheal mass on CXR but per CT chest, no paratracheal mass is identified. 2. Small pericardial effusion EKG - initial EKG with accelerated junctional rhythm with HR 69 bpm, repeat EKG with NSR at 60 bpm Will obtain 2D echo given small pericardial effusion, dyspnea on exertion Wean supplemental O2 as tolerated PT/OT evals, fall precautions (4) Post-surgical hypothyroidism: Plan: Reported history partial thyroidectomy TSH: 253, Free T4: pending States she is taking 88mcg levothyroxine but last filled in September 2023, does not have a PCP Plan to resume normal dose although awaiting Free T4 Suspect hypothyroidism is contributing to weakness Will need continued follow up of TSH for further dosing adjustments (5) Abnormal CT of the abdomen: Plan: 1 cm indeterminate hypodense nodule in the left kidney. In the absence of a prior study to compare, nonemergent renal ultrasound would better assess - ordered DVT Ppx: SQ heparin Code status: FULL PCP: no PCP (would like to establish with jarett PCP in [facility]) Dispo: obs med tele Patient seen in collaboration with Dr. Montelongo. Please see addendum. I spent a total of 75 minutes coordinating, documenting, and providing care for this patient excluding time spent in the performance of separately billed services. History of Present Illness Chief Complaint: weakness, SOB Primary Care Provider: NO PCP This is a 88yo F with a PMH of hypothyroidism who presents from home with weakness and dyspnea exertion over the past few days. Patient does not follow regularly with a PCP and states she has been taking her levothyroxine but cannot tell me who prescribes it. Lives independently in an apartment and does not use any assistive devices. Has been feeling more short of breath with any type of exertion, but feels fine at rest. Denies any swelling of lower extremities. No orthopnea. Denies any recent known sick contacts. No fever, chills, lightheadedness, headache, cough or congestion. No chest pain or palpitations. Denies any nausea, vomiting, abdominal pain, dysuria, diarrhea or constipation. Does not require oxygen at baseline. Allergies Allergy/AdvReac Type Severity Reaction Status Date / Time No Known Allergies Allergy Unverified 02/11/24 12:39 Home Medications Medication Instructions Recorded Confirmed Type levothyroxine 88 mcg tablet 88 mcg PO DAILY 09/29/23 02/11/24 History multivitamin 1 tab PO DAILY 09/29/23 02/11/24 History Past Med/Surg History Problem List (Updated 02/11/24 @ 15:53 by Maglay Garcia PA-C) Abnormal CT of the abdomen Acute hypoxic respiratory failure Generalized weakness SOB (shortness of breath) (Acute) Medical History Post-surgical hypothyroidism Surgical History History of appendectomy History of partial thyroidectomy Family History Brother Heart disease Social History Smoking Status: Never smoker Hx Alcohol Use: No Hx Substance Use: No Preferred Language: French Communication Ability: Effective 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 Physical Exam Physical Exam: General Appearance: WD/WN, vitals as above, NAD, sitting up in bed, pleasant, conversing easily Head: normocephalic, atraumatic Eyes: normal inspection, PERRL, conjunctivae normal, anicteric sclerae ENT: external ear and nose normal, oropharynx normal Neck: normal visual inspection, trachea midline, no thyromegaly Respiratory: normal respiratory effort, lungs clear to auscultation, no wheeze, rales, rhonchi. No accessory muscle use Cardiovascular: regular rate, rhythm, normal peripheral pulses, no BLE edema. Vessels: no JVD Chest: normal inspection of chest Abdomen/GI: normal bowel sounds, soft, nontender, no hepatosplenomegaly Extremities/Musculoskeletal: no cyanosis or clubbing, extremities motor strength 5/5 Neurologic: PERRL, EOMI, accommodation nl, no face palsy, no dysarthria, CN's II-XI intact bilaterally and moves all extremities Psychiatric: A+Ox3, euthymic affect Skin: no rashes, normal color, warm/dry Results & Data Results & Data Vital Signs (Past 12 Hours) Vital Signs Temp Pulse Resp BP Pulse Ox O2 Del Method O2 Flow Rate 02/11/24 12:03 57 L 14 134/73 97 Nasal Cannula 2 02/11/24 11:21 58 L 16 111/61 96 Nasal Cannula 2 02/11/24 11:03 88 L Room Air, Nasal Cannula 0 02/11/24 11:00 58 L 16 137/67 90 Nasal Cannula 2 02/11/24 10:30 54 L 18 128/63 96 02/11/24 10:00 62 24 156/65 H 02/11/24 09:57 56 L 02/11/24 09:46 35.5 C L 70 20 156/65 H 97 Room Air Laboratory Results Short CBC 02/11/24 Range/Units 09:57 WBC 5.24 (4.8-10.8) K/ul Hgb 15.3 (12.0-16.0) g/dl Hct 43.5 (37.0-47.0) % Plt Count 187 (130-400) K/uL BMP 02/11/24 09:57 Sodium 133 L Potassium 3.8 Chloride 96 L Carbon Dioxide 23 BUN 16 Creatinine 1.06 Glucose 78 Calcium 10.3 Liver Function 02/11/24 Range/Units 09:57 Total Bilirubin 1.1 H (0.2-1.0) mg/dl AST 30 (13-39) U/L ALT 17 (7-52) U/L Alkaline Phosphatase 88 (34-104) U/L Albumin 4.3 (3.4-5.0) gm/dl Diagnostic Findings Chest X-Ray 02/11/24 11:05 XR chest 1V portable CLINICAL HISTORY: Chest pain, nonspecific TECHNIQUE: Single frontal radiograph of the chest was obtained. Comparison: Comparison is made to chest radiograph 09/29/2023 FINDINGS: No lines and tubes are seen. The cardiomediastinal silhouette is normal. The lungs are clear. No evidence of pleural effusion or pneumothorax. A skin fold is seen on the right. IMPRESSION: No acute chest disease. ACT 112: Negative or not required by law. Electronically signed by: Kirill Joseph M.D. 02/11/2024 12:[address] 02/11/24 13:21 EXAM: CT Chest Without Intravenous Contrast INDICATION: Right paratracheal mass TECHNIQUE: Axial computed tomography images of the chest without intravenous contrast. Sagittal and coronal reformatted images were created and reviewed. This CT exam was performed using one or more of the following dose reduction techniques: automated exposure control, adjustment of the mA and/or kV according to patient size, and/or use of iterative reconstruction technique. COMPARISON: Chest x-ray 09/29/2023 FINDINGS: Limitations: None. Lungs and pleural spaces: No abnormality noted. No mass. No consolidation. No pneumothorax. No significant effusion. Heart: Small pericardial effusion. Dense coronary calcification. Thyroid: Absent left thyroid presumably removed. Small right thyroid possibly resected with some residual tissue in the thyroid bed. No mass noted. Bones/joints: Degenerative changes noted throughout the spine. No acute osseous abnormality seen. Soft tissues: No significant abnormality noted. Vasculature: No abnormality noted. No thoracic aortic aneurysm. Lymph nodes: No enlarged lymph nodes. Kidneys and ureters: There is a 1 cm diameter hyperdense nodule in the upper pole of the left kidney. Stomach and bowel: Diverticulosis in the splenic flexure region of the colon noted. No visible upper abdominal inflammatory process. IMPRESSION: 1. No paratracheal mass is identified. 2. Small pericardial effusion. 3. 1 cm indeterminate hypodense nodule in the left kidney. In the absence of a prior study to compare, nonemergent renal ultrasound would better assess. ACT 112: Negative or not required by law. Electronically signed by Kaley Nichole 02-11-2024 3:30 PM ECG Additional Comments: Initial EKG with accelerated junctional rhythm at 69 bpm - repeated due to artifact, repeat with NSR at 60 bpm, no acute ST changes
[2024-02-11 14:21] LABS: Magnesium 2.3 mg/dl (1.7-2.4)
[2024-02-11 14:50] LABS: Adenovirus PCR Not Detected (NotDetected); Bordetella parapertussis PCR Not Detected (NotDetected); Bordetella pertussis PCR Not Detected (NotDetected); Chlamydia pneumoniae PCR Not Detected (NotDetected); Coronavirus 229E PCR Not Detected (NotDetected); Coronavirus CoV-2 (COVID19)PCR Not Detected (NotDetected); Coronavirus HKU1 PCR Not Detected (NotDetected); Coronavirus NL63 PCR Not Detected (NotDetected); Coronavirus OC43PCR Not Detected (NotDetected); Human Metapneumovirus PCR Not Detected (NotDetected); Influenza A PCR Not Detected (NotDetected); Influenza B PCR Not Detected (NotDetected); Mycoplasma pneumoniae PCR Not Detected (NotDetected); Parainfluenza Virus 1 PCR Not Detected (NotDetected); Parainfluenza Virus 2 PCR Not Detected (NotDetected); Parainfluenza Virus 3 PCR Not Detected (NotDetected); Parainfluenza Virus 4 PCR Not Detected (NotDetected); Respiratory Syncytial VirusPCR Not Detected (NotDetected); Rhinovirus/Enterovirus PCR Not Detected (NotDetected)
[2024-02-11 15:06] LABS: Thyroid Stimulating Hormone 253.077 uIu/ml (0.300-4.500)
--- NOTE | 2024-02-11 15:22 | Electrocardiogram Report ---
Test Reason : Blood Pressure : */* mmHG Vent. Rate : 69 BPM Atrial Rate : * BPM P-R Int : * ms QRS Dur : 74 ms QT Int : 414 ms P-R-T Axes : * -26 17 degrees QTcB Int : 443 ms Accelerated Junctional rhythm Electrical artifact limits rhythm interpretation-NSR vs Afib-flutter Low voltage QRS Cannot rule out Anterior infarct , age undetermined Abnormal ECG When compared with ECG of 01-Oct-2023 06:56, Junctional rhythm has replaced Sinus rhythm QT has lengthened Confirmed by Marilin Pimentel ([id number]) on 02/11/2024 3:21:54 PM Referred By: REFERRED SELF Confirmed By: Marilin Pimentel
--- NOTE | 2024-02-11 15:30 | CT Scan Report ---
EXAM: CT Chest Without Intravenous Contrast INDICATION: Right paratracheal mass TECHNIQUE: Axial computed tomography images of the chest without intravenous contrast. Sagittal and coronal reformatted images were created and reviewed. This CT exam was performed using one or more of the following dose reduction techniques: automated exposure control, adjustment of the mA and/or kV according to patient size, and/or use of iterative reconstruction technique. COMPARISON: Chest x-ray 09/29/2023 FINDINGS: Limitations: None. Lungs and pleural spaces: No abnormality noted. No mass. No consolidation. No pneumothorax. No significant effusion. Heart: Small pericardial effusion. Dense coronary calcification. Thyroid: Absent left thyroid presumably removed. Small right thyroid possibly resected with some residual tissue in the thyroid bed. No mass noted. Bones/joints: Degenerative changes noted throughout the spine. No acute osseous abnormality seen. Soft tissues: No significant abnormality noted. Vasculature: No abnormality noted. No thoracic aortic aneurysm. Lymph nodes: No enlarged lymph nodes. Kidneys and ureters: There is a 1 cm diameter hyperdense nodule in the upper pole of the left kidney. Stomach and bowel: Diverticulosis in the splenic flexure region of the colon noted. No visible upper abdominal inflammatory process. IMPRESSION: 1. No paratracheal mass is identified. 2. Small pericardial effusion. 3. 1 cm indeterminate hypodense nodule in the left kidney. In the absence of a prior study to compare, nonemergent renal ultrasound would better assess. ACT 112: Negative or not required by law. Electronically signed by Kaley Nichole 02-11-2024 3:30 PM
[2024-02-11 16:00] LABS: T4 Free Thyroxine < 0.33 ng/dl (0.61-1.60)
[2024-02-11] MEDS ORDERED: ONDANSETRON INJ 2 MG/ML 2 ML VIAL IV PRN (16:03)
[2024-02-11] MEDS ORDERED: POLYETHYLENE (MIRALAX) 17 GM PACK PO PRN (16:03)
[2024-02-11] MEDS ORDERED: ACETAMINOPHEN 325 MG TAB PO PRN (16:03)
[2024-02-11] MEDS: HEPARIN SOD 5,000 UNIT/0.5 ML VIAL SQ SCH (21:36)
[2024-02-11 21:47] LABS: Appearance Urine Clear (Clear); Bacteria Urine Automated 1+ (None Seen); Bilirubin Urine Negative (Negative); Blood Urine Negative (Negative); Cast Urine Automated 0-2 /lpf (0-2); Color Urine Yellow; Glucose Urine UA Negative (Negative); Ketones Urine 2+ (Negative); Leukocyte Esterase Urine 2+ (Negative); Nitrite Urine Negative (Negative); Protein Urine Negative (Negative); RBC Urine Automated 0-2 /hpf (0-2); Specific Gravity Urine 1.023 (1.000-1.030); Urobilinogen Urine Negative (Negative); WBC Urine Automated >50 /hpf (0-5)
--- NOTE | 2024-02-11 23:10 | Ultrasound Report ---
Exam(s): US RENAL EXAM: US Retroperitoneal Limited, Renal CLINICAL HISTORY: hypodense nodule L kidney seen on CT. TECHNIQUE: Real-time limited ultrasound of the retroperitoneum with image documentation. COMPARISON: No relevant prior studies available. FINDINGS: Right kidney: The right kidney measures 9 cm in length. No stones. No hydronephrosis. Left kidney: The left kidney measures 10.4 cm in length. The reported finding on the CT examination, which is unavailable for review, is not clearly evident. It is indeterminate where within the left kidney with was located. No nephrolithiasis or hydronephrosis. Bladder: The bladder is mild to moderately distended. No bladder wall thickening or bladder stones. IMPRESSION: Negative renal sonographic evaluation. Electronically signed by: Edy Borjas MD 02/11/24 23:09 PM
[2024-02-12 05:08] LABS: Hematocrit (blood only) 41.1 % (37.0-47.0); Hemoglobin 14.4 g/dl (12.0-16.0); Mean Corpuscular Hemoglobin 32.9 pg (25.0-34.0); Mean Corpuscular Volume 93.8 fL (80.0-100.0); Mean Platelet Volume 9.7 fL (9.4-12.4); Platelet Count 172 K/uL (130-400); RDW Coefficient of Variation 14.1 % (11.5-14.5); RDW Standard Deviation 48.4 fL (36.4-46.3); Red Blood Count 4.38 M/uL (4.20-5.40); White Blood Count 5.28 K/ul (4.8-10.8)
[2024-02-12 05:24] LABS: Calcium 9.5 mg/dl (8.6-10.3); Creatinine Clr Calc Pharmacy 40.2 ml/min; Magnesium 2.2 mg/dl (1.7-2.4); Potassium 3.8 mmol/L (3.5-5.1)
[2024-02-12] MEDS: LEVOTHYROXINE SODIUM 88 MCG TABLET PO SCH (08:19)
--- NOTE | 2024-02-12 09:20 | Electrocardiogram Report ---
Test Reason : Blood Pressure : */* mmHG Vent. Rate : 60 BPM Atrial Rate : 60 BPM P-R Int : 166 ms QRS Dur : 78 ms QT Int : 412 ms P-R-T Axes : 34 -22 127 degrees QTcB Int : 412 ms Normal sinus rhythm Low voltage QRS Cannot rule out Anterior infarct (cited on or before 11-Feb-2024) Nonspecific T wave abnormality Abnormal ECG When compared with ECG of 11-Feb-2024 09:49, Sinus rhythm confirmed Confirmed by Marilin Pimentel ([id number]) on 02/12/2024 9:19:50 AM Referred By: REFERRED SELF Confirmed By: Marilin Pimentel
[2024-02-12] MEDS: MULTIVITAMIN TAB PO SCH (09:49)
--- NOTE | 2024-02-12 11:34 | Hospitalist Progress Note ---
Date of Service February 12, 2024 Assessment & Plan (1) Acute hypoxic respiratory failure: (2) Generalized weakness: (3) SOB (shortness of breath): Plan: This is a 88yo F with a PMH of hypothyroidism who presents from home with weakness and dyspnea exertion over the past few days. Hypoxic in high 80s with exertion/movement, 98% on 2L NC - not on home O2. Wean as tolerated Afebrile, no leukocytosis D-dimer WNL, VBG WNL, Viral resp panel negative ? Paratracheal mass on CXR but per CT chest, no paratracheal mass is identified. 2. Small pericardial effusion EKG - initial EKG with accelerated junctional rhythm with HR 69 bpm, repeat EKG with NSR at 60 bpm Echocardiogram: EF 55-60%, grade I diastolic dysfunction, LVEF 55-60%, small to moderate sized loculated anterior and right lateral pericardial effusion with fibrinous strands present Discussed echocardiogram with Cardiology who recommends treating the TSH and repeat echo in 2 weeks to ensure stability, ESR/CRP normal PT/OT evals, fall precautions (4) Abnormal urinalysis: Plan: UA abnormal, culture pending no leukocytosis or fever, will hold on antibiotics at this time (5) Post-surgical hypothyroidism: Plan: 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 Anne Pizarro for endocrinology regarding further recs who recommended obtaining echo to eval for pericardial effusion and r/o pleural effusion. Discussed my conversation with cardiology. She agrees to continue lev othyroxine and obtain outpt endocrinology follow up (6) Abnormal CT of the abdomen: Plan: 1 cm indeterminate hypodense nodule in the left kidney. No identifiable nodule on Renal US DVT Ppx: SQ heparin Code status: FULL PCP: no PCP (would like to establish with [facility] PCP in [facility]) Dispo: obs med tele , PT/OT evals, possible d/c tomorrow Patient seen in collaboration with Dr. Pizarro. Please see addendum. I spent a total of 51 minutes reviewing notes, outpatient records, labs, medication, coordinating, documenting and providing care for this patient excluding time spent in the performance of separately billed services. Admission and Anticipated Discharge Date Admission Date: February 11, 2024 Supervising Physician Co-Signing Physician Notes Patient was seen and examined at bedside as a follow-up of hypoxia, generalized weakness, postsurgical hypothyroidism. Case was discussed with Opal BURNETT. Patient will need to follow-up with endocrinology as an outpatient. Patient will need to repeat echo in 2 weeks upon discharge for concern of pericardial effusion noted this admission per curb side recommendation from Cardiology. She will need cardio f/u on dc if persistent pericardial effusion. Patient Will Resume Her Home Dose of Levothyroxine, Will Need Repeat Thyroid Function Test in 6 Weeks Time. On exam: Patient on room air, no BLE edema. Rest of the examination as above. Total time spent: 10 minutes. I have seen and examined the patient and have discussed the case with the provider above. I agree with the assessment and plan as stated. Subjective Pt asking when she can go home. She denies complaints. She denies f/c/s, chest pain, sob, n/v/d. She has a good appetite. She felt weak on admission, but denies this today. We discussed her levothyroxine. She states she lives in a 1 floor apartment and has to walk to get her medications. She thought she had been taking her levothyroxine, but it is possible she hasn't. Per pharmacy fill list it was last prescribed in September for 30 days only. Review of Systems Review of Systems: All systems reviewed & are unremarkable except as noted in HPI & below Physical Exam Physical Exam: Gen: WD/WN, NAD, A&O x3 HEENT: Normocephalic, atraumatic, conjunctivae moist, sclerae anicteric, mucous membranes moist. Lung: Clear to Auscultation bilaterally, no wheezes/rales/rhonchi Heart: Regular rate, regular rhythm, no murmurs, rubs, or gallops Abdomen: Soft, NT, ND +BS x 4 Extremities: No edema Skin: Warm, no rash, negative turgor. Results & Data Results & Data Vital Signs (Past 12 Hours) Vital Signs Temp Pulse Pulse Pulse Resp BP BP 02/12/24 08:15 02/12/24 08:11 36.6 C 58 L 16 115/64 02/12/24 07:42 51 L 12/30/24 05:59 54 L 02/12/24 05:11 36.6 C 55 L 18 142/75 H 02/12/24 04:55 60 17 113/58 L 02/12/24 04:00 55 L 13 107/63 02/12/24 03:00 58 L 12 119/61 02/12/24 02:00 59 L 17 156/70 H 02/12/24 01:58 158/69 H 02/12/24 01:45 57 L 15 02/12/24 01:00 62 20 118/63 02/12/24 00:30 58 L 16 128/65 02/12/24 00:30 58 L 18 128/65 02/12/24 00:00 55 L 15 119/65 02/12/24 00:00 56 L 18 119/65 Pulse Ox O2 Del Method 02/12/24 08:15 Room Air 02/12/24 08:11 91 Room Air 02/12/24 07:42 02/12/24 05:59 02/12/24 05:11 97 Room Air 02/12/24 04:55 95 Room Air 02/12/24 04:00 93 Room Air 02/12/24 03:00 93 Room Air 02/12/24 02:00 97 Room Air 02/12/24 01:58 02/12/24 01:45 02/12/24 01:00 97 Room Air 02/12/24 00:30 97 Room Air 02/12/24 00:30 95 Room Air 02/12/24 00:00 94 02/12/24 00:00 94 Room Air Laboratory Results Short CBC 02/12/24 Range/Units 04:33 WBC 5.28 (4.8-10.8) K/ul Hgb 14.4 (12.0-16.0) g/dl Hct 41.1 (37.0-47.0) % Plt Count 172 (130-400) K/uL BMP 02/11/24 02/12/24 09:57 04:33 Sodium 133 L 134 L Potassium 3.8 3.8 Chloride 96 L 100 Carbon Dioxide 23 22 BUN 16 15 Creatinine 1.06 0.94 Glucose 78 64 L Calcium 10.3 9.5 Liver Function 02/11/24 Range/Units 09:57 Total Bilirubin 1.1 H (0.2-1.0) mg/dl AST 30 (13-39) U/L ALT 17 (7-52) U/L Alkaline Phosphatase 88 (34-104) U/L Albumin 4.3 (3.4-5.0) gm/dl Urine 02/11/24 Range/Units 21:29 Urine Color Yellow Urine Appearance Clear (Clear) Urine pH 5.0 (4.5-7.5) Ur Specific [place] 1.023 (1.000-1.030) Urine Protein Negative (Negative) Urine Glucose (UA) Negative (Negative) I have independently reviewed and interpreted patient's cbc, bmp Medications Administered Current Inpatient Medications Acetaminophen (Acetaminophen 325 Mg Tab) 650 mg PO Q4H PRN PRN Reason: Pain or Fever Stop: 03/12/24 16:02 Heparin Sodium (Porcine) (Heparin Sod 5,000 Unit/0.5 Ml Vial) 5,000 units SQ Q8 JOE Stop: 03/12/24 20:59 Last Admin: 02/12/24 08:19 Dose: 5,000 units Levothyroxine Sodium (Levothyroxine Sodium 88 Mcg Tablet) 88 mcg PO DAILYBB [facility] Stop: 03/13/24 06:29 Last Admin: 02/12/24 08:19 Dose: 88 mcg Multivitamins (Multivitamin Tab) 1 tab PO DAILY [facility] Stop: 03/13/24 08:59 Last Admin: 02/12/24 09:49 Dose: 1 tab Ondansetron HCl (Ondansetron Inj 2 Mg/Ml 2 Ml Vial) 4 mg IV Q6H PRN PRN Reason: Nausea Stop: 03/12/24 16:02 Polyethylene Glycol (Polyethylene (Miralax) 17 Gm Pack) 17 gm PO DAILY PRN PRN Reason: Constipation Stop: 03/12/24 16:02
[2024-02-13 07:52] VITALS: RESP 16
[2024-02-13 08:00] LABS: Hematocrit (blood only) 42.4 % (37.0-47.0); Hemoglobin 14.4 g/dl (12.0-16.0); Mean Corpuscular Hemoglobin 32.8 pg (25.0-34.0); Mean Corpuscular Volume 96.6 fL (80.0-100.0); Mean Platelet Volume 10.1 fL (9.4-12.4); Platelet Count 161 K/uL (130-400); RDW Coefficient of Variation 14.2 % (11.5-14.5); Red Blood Count 4.39 M/uL (4.20-5.40); White Blood Count 4.83 K/ul (4.8-10.8)
[2024-02-13 08:18] LABS: Calcium 9.6 mg/dl (8.6-10.3); Creatinine Clr Calc Pharmacy 40.2 ml/min; Potassium 3.8 mmol/L (3.5-5.1)
[2024-02-13 10:04] LABS: Estimated Average Glucose 108 mg/dl; Hemoglobin A1C 5.4 % (4.5-5.6)
--- NOTE | 2024-02-13 10:18 | Discharge Summary ---
Discharge Summary Date of Service February 13, 2024 Principal Dx & Hospital Course #1 = Principal Diagnosis (1) Acute hypoxic respiratory failure: (2) Generalized weakness: (3) SOB (shortness of breath): This is a 88yo F with a PMH of hypothyroidism who presents from home with weakness and dyspnea exertion over the past few days. In ED patient was initially hypoxic in the 80s. Her D-dimer, VBG and viral respiratory panel was negative. Chest CT revealed a small pericardial effusion, but otherwise no overt cause for hypoxia. Incidentally noted was a 1 cm indeterminate hypodense nodule in the left kidney. A follow-up ultrasound was performed which did not see a nodule. She was found to have a significantly elevated TSH of 253 and T4 of less than 0.33. Patient was previously prescribed levothyroxine 88 mcg daily. Of significance patient was hospitalized in September with similar levels of thyroid function. Upon chart review it appears her last medication fill was in September. Patient reports that she has been taking her medications, but after further questioning she states she has to walk to get her medications and therefore it could be possible that she is not taking them. Given the finding of pericardial effusion an echocardiogram was performed. Her EF was 55-60%, grade I diastolic dysfunction, LVEF 55-60%, small to moderate sized loculated anterior and right lateral pericardial effusion with fibrinous strands present. Her echocardiogram was discussed with on-call public policy coordinator. It is felt that hypothyroidism is in the differential due to the severity of elevated TSH. An ESR and CRP was obtained which was negative. Cardiology recommended repeating echocardiogram in 2 weeks to ensure stability. Her case was also discussed with on-call endocrinology who recommends continuing her home levothyroxine dose with close follow-up of TSH. She will need establishment with endocrinology as an outpatient. Patient reports that she lives in a local apartment complex on the third floor with elevator access. She lives alone. She is currently happy with her living situation. She states that she walks to get her medications. According to case management there was conversations with patients gericare aide teacher at her [facility]. There was concern regarding her returning to her apartment as it is felt she is unsafe to live alone. Pt will need close outpatient follow up. She does not have a primary care provider so this will need to be obtained prior to discharge from rehab. On day of discharge pt was in good spirits and offered no acute concerns. She continues to feel generally weak. She is hemodynamically stable. She was weaned off oxygen. Important Follow up: Please obtain patient a Primary Care Provider appointment. She will also need repeat TSH/T4 testing in 2-4 weeks. She needs a repeat echocardiogram in 2 weeks. Please ensure appropriate follow up. (4) Abnormal urinalysis: (5) Post-surgical hypothyroidism: (6) Abnormal CT of the abdomen: Notes For Next Care Provider Important Follow up: Please obtain patient a Primary Care Provider appointment. She will also need repeat TSH/T4 testing in 2-4 weeks. She needs a repeat echocardiogram in 2 weeks. Please ensure appropriate follow up. Medication Changes From Visit Please take Levothyroxine 88mcg by mouth daily first thing in the morning. It is important to take this medication 30 minutes prior to any other intake first thing in the morning. Admission HPI Per Admitting Provider This is a 88yo F with a PMH of hypothyroidism who presents from home with weakness and dyspnea exertion over the past few days. Patient does not follow regularly with a PCP and states she has been taking her levothyroxine but cannot tell me who prescribes it. Lives independently in an apartment and does not use any assistive devices. Has been feeling more short of breath with any type of exertion, but feels fine at rest. Denies any swelling of lower extremities. No orthopnea. Denies any recent known sick contacts. No fever, chills, lightheadedness, headache, cough or congestion. No chest pain or palpitations. Denies any nausea, vomiting, abdominal pain, dysuria, diarrhea or constipation. Does not require oxygen at baseline. Admission Exam Per Admitting Provider General Appearance: WD/WN, vitals as above, NAD, sitting up in bed, pleasant, conversing easily Head: normocephalic, atraumatic Eyes: normal inspection, PERRL, conjunctivae normal, anicteric sclerae ENT: external ear and nose normal, oropharynx normal Neck: normal visual inspection, trachea midline, no thyromegaly Respiratory: normal respiratory effort, lungs clear to auscultation, no wheeze, rales, rhonchi. No accessory muscle use Cardiovascular: regular rate, rhythm, normal peripheral pulses, no BLE edema. Vessels: no JVD Chest: normal inspection of chest Abdomen/GI: normal bowel sounds, soft, nontender, no hepatosplenomegaly Extremities/Musculoskeletal: no cyanosis or clubbing, extremities motor strength 5/5 Neurologic: PERRL, EOMI, accommodation nl, no face palsy, no dysarthria, CN's II-XI intact bilaterally and moves all extremities Psychiatric: A+Ox3, euthymic affect Skin: no rashes, normal color, warm/dry Discharge Exam Gen: WD/WN, NAD, A&O x3 HEENT: Normocephalic, atraumatic, conjunctivae moist, sclerae anicteric, mucous membranes moist. Lung: Clear to Auscultation bilaterally, no wheezes/rales/rhonchi Heart: Regular rate, regular rhythm, no murmurs, rubs, or gallops Abdomen: Soft, NT, ND +BS x 4 Extremities: No edema Skin: Warm, no rash, negative turgor. Updated Medication List Medication Instructions Recorded Confirmed Type levothyroxine 88 mcg tablet 88 mcg PO DAILY 09/29/23 02/11/24 History multivitamin 1 tab PO DAILY 09/29/23 02/11/24 History Hospital Stay Data Consultations 02/11/24 13:21 ED Decision to Admit Stat Diagnostic Imagining Performed Chest X-Ray 02/11/24 11:05 XR chest 1V portable CLINICAL HISTORY: Chest pain, nonspecific TECHNIQUE: Single frontal radiograph of the chest was obtained. Comparison: Comparison is made to chest radiograph 09/29/2023 FINDINGS: No lines and tubes are seen. The cardiomediastinal silhouette is normal. The lungs are clear. No evidence of pleural effusion or pneumothorax. A skin fold is seen on the right. IMPRESSION: No acute chest disease. ACT 112: Negative or not required by law. Electronically signed by: Kirill Joseph M.D. 02/11/2024 12:[address] 02/11/24 13:21 EXAM: CT Chest Without Intravenous Contrast INDICATION: Right paratracheal mass TECHNIQUE: Axial computed tomography images of the chest without intravenous contrast. Sagittal and coronal reformatted images were created and reviewed. This CT exam was performed using one or more of the following dose reduction techniques: automated exposure control, adjustment of the mA and/or kV according to patient size, and/or use of iterative reconstruction technique. COMPARISON: Chest x-ray 09/29/2023 FINDINGS: Limitations: None. Lungs and pleural spaces: No abnormality noted. No mass. No consolidation. No pneumothorax. No significant effusion. Heart: Small pericardial effusion. Dense coronary calcification. Thyroid: Absent left thyroid presumably removed. Small right thyroid possibly resected with some residual tissue in the thyroid bed. No mass noted. Bones/joints: Degenerative changes noted throughout the spine. No acute osseous abnormality seen. Soft tissues: No significant abnormality noted. Vasculature: No abnormality noted. No thoracic aortic aneurysm. Lymph nodes: No enlarged lymph nodes. Kidneys and ureters: There is a 1 cm diameter hyperdense nodule in the upper pole of the left kidney. Stomach and bowel: Diverticulosis in the splenic flexure region of the colon noted. No visible upper abdominal inflammatory process. IMPRESSION: 1. No paratracheal mass is identified. 2. Small pericardial effusion. 3. 1 cm indeterminate hypodense nodule in the left kidney. In the absence of a prior study to compare, nonemergent renal ultrasound would better assess. ACT 112: Negative or not required by law. Electronically signed by Kaley Nichole 02-11-2024 3:30 PM Renal Ultrasound 02/11/24 20:02 Exam(s): US RENAL EXAM: US Retroperitoneal Limited, Renal CLINICAL HISTORY: hypodense nodule L kidney seen on CT. TECHNIQUE: Real-time limited ultrasound of the retroperitoneum with image documentation. COMPARISON: No relevant prior studies available. FINDINGS: Right kidney: The right kidney measures 9 cm in length. No stones. No hydronephrosis. Left kidney: The left kidney measures 10.4 cm in length. The reported finding on the CT examination, which is unavailable for review, is not clearly evident. It is indeterminate where within the left kidney with was located. No nephrolithiasis or hydronephrosis. Bladder: The bladder is mild to moderately distended. No bladder wall thickening or bladder stones. IMPRESSION: Negative renal sonographic evaluation. Electronically signed by: Edy Borjas MD 02/11/24 23:09 PM Pending Results Patient Have Any Pending Studies at Discharge: No Discharge Instructions Given to Patient (Per Discharging Provider) MEDICATION CHANGES: Please take Levothyroxine 88mcg by mouth daily first thing in the morning. It is important to take this medication 30 minutes prior to any other intake first thing in the morning. SUMMARY OF TEST RESULTS: You were admitted to hospital 2 weakness. Your thyroid function is abnormal and it appears you have not been taking your thyroid medication. You had an echocardiogram which revealed a small to moderate amount of fluid in the pericardium which is the sac that covers your heart. It is felt this could be related to your thyroid function. It is extremely important you take your thyroid medication everyday and you are going to need your thyroid levels repeated in 2 weeks. PENDING TEST RESULTS: None RECOMMENDATIONS FOR FOLLOW-UP: Please obtain an appointment with a Primary Care Provider upon discharge. [facility] can help you with this prior to discharge. It is extremely important that you establish with an analyst market intelligence to help manage your thyroid disease. Please have your primary care provider refer you to an analyst market intelligence. You need your Thyroid function (TSH and T4) repeated in 2 weeks to ensure improvement. You will need this closely followed until your function is back in normal range. It is recommended you have a repeat echocardiogram in 2 weeks to monitor the fluid around your heart. OTHER INSTRUCTIONS: Seek medical attention if you have: * temperature above 101 * chest pain or trouble breathing * abdominal pain, nausea, vomiting * diarrhea, dark stools or bloody stools * any unanswered questions or concerns Call 911 if symptoms are severe. Please take good care of yourself. It has been a pleasure taking care of you. Please take care of yourself. If you have any questions regarding your recent hospitalization please contact [facility] and request Zora Zavaleta @ [phone]. Total Time Total Time Spent Total Time Spent (In Minutes): 45 minutes Supervising Physician Co-Signing Physician Notes Attending addendum: The patient was seen and examined in medical telemetry unit She has been feeling much better and denies any significant symptoms She will be discharged to rehab facility today on examination Lying in bed without any acute distress Remains hemodynamically stable Chestclear to auscultate bilaterally HeartS1-S2, regular Abdomenbenign Extremitiesno edema Heart labs and imaging studies were reviewed Remains medically stable and will be discharged to rehab facility today Agree with assessment and plan as outlined above by Opal Bansal PA-C and take the full responsibility of the care in the hospital. Dr Alvin Douglas
[2024-02-13 10:51] VITALS: BP 110/71; PULSE 83; TEMP 97.9; O2SAT 96
== END 2024-02-13 13:17 | DRG 189 ==
LOC: ED 09:42 → EDINP 09:42 → SUATTDRO 13:45 → 2N 02-12 04:58 → SUATTDRO 02-12 15:47